=== PATIENT | male | born 1980 | race Caucasian/White ===

== ENCOUNTER 2017-05-10 12:02 | Inpatient (IN) | payer OTHER ==
[2017-05-10 12:39] VITALS: BMI 23.7
--- NOTE | 2017-05-10 13:53 | HP ---
COWS - Scale Resting Pulse: 1= [place] 81-100 Sweatin= Chills/Flushing Restless Observation: 3= Extraneous Movement Pupil Size: 1= Pupils >than Normal Bone or Joint Aches: 2= Severe Diffuse Aches Runny Nose/ Eye Tearin= Runny Nose/Eyes GI Upset > 30mins: 1= Stomach Cramp Tremor Observation: 2= Slight Tremor Visible Yawning Observation: 2= >3x During Session Anxiety or Irritability: 2=Irritable/Anxious Goose Flesh Skin: 0=Smooth Skin COWS Score: 17 Admission [facility] Chief Complaint: withdrawal sx Allergies/Adverse Reactions: Allergies Allergy/AdvReac Type Severity Reaction Status Date / Time No Known Allergies Allergy Verified 05/10/17 14:03 History of Present Illness: 37 years old male with long history of heroin nicotine dependence has depression is admitted to detox Exam Limitations: No Limitations - Ebola screening Have you traveled outside of the country in the last 21 days: No Have you had contact with anyone from an Ebola affected area: No Have you been sick,other than usual withdrawal symptoms: No Do you have a fever: No - Review of Systems Constitutional: Loss of Appetite, Changes in sleep, Unintentional Wgt. Loss, Unexplained wgt Loss EENT: reports: No Symptoms Reported Respiratory: reports: No Symptoms reported Cardiac: reports: No Symptoms Reported GI: reports: Nausea, Poor Appetite, Poor Fluid Intake, Abdominal cramping : reports: No Symptoms Reported Musculoskeletal: reports: Back Pain, Joint Pain, Muscle Pain, Neck Pain Integumentary: reports: No Symptoms Reported Neuro: reports: Tremors Endocrine: reports: No Symptoms Reported Hematology: reports: No Symptoms Reported Psychiatric: reports: Judgement Intact, Orientated x3, Anxious, Depressed Other Systems: Reviewed and Negative Patient History - Patient Medical History Hx Anemia: No Hx Asthma: No Hx Chronic Obstructive Pulmonary Disease (COPD): No Hx Cancer: No Hx Cardiac Disorders: No Hx Congestive Heart Failure: No Hx Hypertension: No Hx Hypercholesterolemia: No Hx Pacemaker: No HX Cerebrovascular Accident: No Hx Seizures: No Hx Dementia: No Hx Diabetes: No Hx Gastrointestinal Disorders: No Hx Liver Disease: No Hx Genitourinary Disorders: No Hx Sexually Transmitted Disorders: No Hx Renal Disease (ESRD): No Hx Thyroid Disease: No Hx Human Immunodeficiency Virus (HIV): No Hx Hepatitis C: No Hx Depression: Yes Hx Suicide Attempt: No Hx Bipolar Disorder: No Hx Schizophrenia: No - Patient Surgical History Past Surgical History: No - PPD History Previous Implant?: Yes Documented Results: Negative w/o proof Implanted On Prior [facility] Admission?: No PPD to be Administered?: Yes - Smoking Cessation Smoking history: Current every day smoker Have you smoked in the past 12 months: Yes Aproximately how many cigarettes per day: 6 Cigars Per Day: 0 Hx Chewing Tobacco Use: No Initiated information on smoking cessation: Yes 'Breaking Loose' booklet given: 05/10/17 - Substance & Tx. History Hx Alcohol Use: No Hx Substance Use: Yes Substance Use Type: Heroin, Marijuana, Tranquilizers Hx Substance Use Treatment: No (first detox) - Substances Abused Heroin Route: Inhalation Frequency: Daily Amount used: 5 bags Age of first use: 35 Date of Last Use: 05/09/17 Family Disease History - Family Disease History Family Disease History: [place]: Father (), Other: Father Admission Physical Exam S - Vital Signs Vital Signs: Vital Signs - 24 hr 05/10/17 12:36 Temperature 98.9 F Pulse Rate 100 H Respiratory 18 Rate Blood Pressure 118/78 - Physical General Appearance: Yes: Appropriately Dressed, Mild Distress, Thin, Tremorous, Irritable, Sweating, Anxious HEENTM: Yes: Hearing grossly Normal, Normal ENT Inspection, Normocephalic, Normal Voice Respiratory: Yes: Chest Non-Tender, No Respiratory Distress, No Accessory Muscle Use, Hyperresonant Neck: Yes: Supple, Trachea in good position Breast: Yes: Breasts Symetrical Cardiology: Yes: Regular Rhythm, S1, S2, Tachycardia Abdominal: Yes: Normal Bowel Sounds, Non Tender, Soft Genitourinary: Yes: Within Normal Limits Back: Yes: Normal Inspection Musculoskeletal: Yes: full range of Motion, Gait Steady, Back pain, Muscle Pain Extremities: Yes: Normal Inspection, Normal Range of Motion, Non-Tender, Tremors Neurological: Yes: Fully Oriented, Alert, Motor Strength 5/5, Normal Response, Depressed Affect Integumentary: Yes: Warm Lymphatic: Yes: Within Normal Limits - Diagnostic (1) Opioid dependence with withdrawal Current Visit: Yes Status: Acute (2) Nicotine dependence Current Visit: Yes Status: Acute Qualifiers: Nicotine product type: cigarettes Substance use status: in withdrawal Qualified Code(s): F17.213 - Nicotine dependence, cigarettes, with withdrawal (3) Weight loss Current Visit: Yes Status: Acute (4) Depression (emotion) Current Visit: Yes Status: Suspected Qualifiers: Depression Type: dysthymia Qualified Code(s): F34.1 - Dysthymic disorder Cleared for Admission [facility] - Detox or Rehab [facility] Level of Care: Medically Managed Detox Regimen/Protocol: Methadone [facility] Breath Alcohol Content Breath Alcohol Content: 0 Urine Drug Screen - Results Drug Screen Negative: No Urine Drug Screen Results: THC-Marijuana, OPI-Opiates, BZO-Benzodiazepines
[2017-05-10] MEDS ORDERED: P-EPHED 60MG/TRIPROLIDI 2.5MG TABLET PO PRN (14:10)
[2017-05-10] MEDS ORDERED: MENTHOL/PHENOL 1 EACH UD MM PRN (14:10)
[2017-05-10] MEDS ORDERED: MAGNESIUM HYDROX 2400MG/30ML ORAL SUSPENSION 30 ML CUP PO PRN (14:10)
[2017-05-10] MEDS ORDERED: ACETAMINOPHEN 325 MG TABLET (FP) PO PRN (14:10)
[2017-05-10] MEDS ORDERED: LOPERAMIDE HCL 2 MG CAPSULE PO PRN (14:10)
[2017-05-10] MEDS ORDERED: guaiFENesin/D-METHORPHAN HB 10 ML UNIT-DOSE CUPS PO PRN (14:10)
[2017-05-10] MEDS ORDERED: IBUPROFEN 400 MG TABLET (FP) PO PRN (14:10)
[2017-05-10] MEDS ORDERED: MAG HYDROX/AL HYDROX/SIMETH 30 ML UNIT-DOSE CUP PO PRN (14:10)
[2017-05-10] MEDS ORDERED: MAGNESIUM CITRATE 300 ML BOTTLE PO PRN (14:10)
[2017-05-10] MEDS ORDERED: METHADONE HCL 10 MG TABLET (FOR DETOX USE ONLY) PO ONE ×2 (17:15→23:00)
[2017-05-10] MEDS: THIAMINE HCL 100 MG TABLET (FP) PO SCH (22:18)
[2017-05-10] MEDS: METHOCARBAMOL 500 MG TABLET PO PRN (22:18)
[2017-05-10] MEDS: diazePAM 5 MG TABLET PO PRN (22:19)
[2017-05-10] MEDS: SODIUM CHLORIDE NASAL SPRAY 44 ML BOTTLE NS SCH (22:19)
[2017-05-11 00:23] LABS: URINE APPEARANCE CLEAR; URINE BILIRUBIN NEGATIVE (NEGATIVE); URINE BLOOD NEGATIVE (NEGATIVE); URINE COLOR YELLOW; URINE GLUCOSE (UA) NEGATIVE (NEGATIVE); URINE KETONE NEGATIVE (NEGATIVE); URINE LEUK ESTERASE NEGATIVE (NEGATIVE); URINE NITRITE NEGATIVE (NEGATIVE); URINE PROTEIN NEGATIVE (NEGATIVE)
[2017-05-11] MEDS: diazePAM 5 MG TABLET PO PRN ×5 (03:01→22:40)
[2017-05-11] MEDS: SODIUM CHLORIDE NASAL SPRAY 44 ML BOTTLE NS SCH ×3 (05:39→22:13)
--- NOTE | 2017-05-11 08:03 | EKG ---
Test Reason : Blood Pressure : / mmHG Vent. Rate : 071 BPM Atrial Rate : 071 BPM P-R Int : 134 ms QRS Dur : 098 ms QT Int : 404 ms P-R-T Axes : 056 -42 008 degrees QTc Int : 439 ms NORMAL SINUS RHYTHM LEFT AXIS DEVIATION ABNORMAL ECG NO PREVIOUS ECGS AVAILABLE Confirmed by THAO DORAN MD ([id number]) on 05/11/2017 8:03:11 AM Referred By: Confirmed By:THAO DORAN MD
[2017-05-11] MEDS ORDERED: METHADONE HCL 10 MG TABLET (FOR DETOX USE ONLY) PO ONE (10:00)
[2017-05-11 10:06] LABS: HEMOGLOBIN 14.8 GM/dL (11.7-16.9); MCH 29.9 pg (25.7-33.7); MCHC 33.7 g/dl (32.0-35.9); MEAN CELL VOLUME 88.8 fl (80-96); PLATELET COUNT 220 K/MM3 (134-434); RBC 4.95 M/mm3 (4.00-5.60); RDW 13.4 % (11.9-15.9); WHITE BLOOD COUNT 9.1 K/mm3 (4.0-10.0)
[2017-05-11 10:14] LABS: CHLORIDE 105 mmol/L (98-107); POTASSIUM 4.4 mmol/L (3.5-5.1); SODIUM 139 mmol/L (136-145)
[2017-05-11] MEDS: PRENATAL VITAMINS W/ FOLIC ACID TABLET (FP) PO SCH (10:18)
[2017-05-11] MEDS: NICOTINE 14 MG/24 HOURS TOPICAL PATCH TD SCH (10:19)
[2017-05-11 10:31] LABS: ALBUMIN 4.1 g/dl (3.4-5.0); ALK PHOS 87 U/L (45-117); ANION GAP 8 (8-16); BLOOD UREA NITROGEN 14 mg/dL (7-18); CALCIUM 9.6 mg/dL (8.5-10.1); CO2 26 mmol/L (21-32); CREATININE 0.8 mg/dL (0.7-1.3); GLUCOSE,RANDOM 98 mg/dL (74-106); SGOT/AST 23 U/L (15-37); SGPT/ALT 30 U/L (12-78); TOT PROT 8.3 g/dl (6.4-8.2)
--- NOTE | 2017-05-11 11:43 | PN ---
BHS COWS - Scale Resting Pulse: 0= [place] 80 or Below Sweatin= Chills/Flushing Restless Observation: 3= Extraneous Movement Pupil Size: 0= Normal to Room Light Bone or Joint Aches: 4=Acute Joint/Muscle Pain Runny Nose/ Eye Tearin= Nasal Congestion GI Upset > 30mins: 1= Stomach Cramp Tremor Observation of Outstretched Hands: 2= Slight Tremor Visible Yawning Observation: 2= >3x During Session Anxiety or Irritability: 2=Irritable/Anxious Goose Flesh Skin: 0=Smooth Skin COWS Score: 16 BHS Progress Note (SOAP) Subjective: ANXIETY,HOT/COLD SWEATS, INTERMITTENT SLEEP. Objective: 05/11/17 11:42 Vital Signs Temperature 98.1 F 05/11/17 09:07 Pulse Rate 79 05/11/17 09:07 Respiratory Rate 18 05/11/17 09:07 Blood Pressure 118/78 05/11/17 09:07 O2 Sat by Pulse Oximetry (%) Laboratory Last Values WBC 9.1 K/mm3 (4.0-10.0) 05/11/17 05:50 RBC 4.95 M/mm3 (4.00-5.60) 05/11/17 05:50 Hgb 14.8 GM/dL (11.7-16.9) 05/11/17 05:50 Hct 44.0 % (35.4-49) 05/11/17 05:50 MCV 88.8 fl (80-96) 05/11/17 05:50 MCH 29.9 pg (25.7-33.7) 05/11/17 05:50 MCHC 33.7 g/dl (32.0-35.9) 05/11/17 05:50 RDW 13.4 % (11.9-15.9) 05/11/17 05:50 Plt Count 220 K/MM3 (134-434) 05/11/17 05:50 MPV 10.0 fl (7.5-11.1) 05/11/17 05:50 Sodium 139 mmol/L (136-145) 05/11/17 05:50 Potassium 4.4 mmol/L (3.5-5.1) 05/11/17 05:50 Chloride 105 mmol/L (98-107) 05/11/17 05:50 Carbon Dioxide 26 mmol/L (21-32) 05/11/17 05:50 Anion Gap 8 (8-16) 05/11/17 05:50 BUN 14 mg/dL (7-18) 05/11/17 05:50 Creatinine 0.8 mg/dL (0.7-1.3) 05/11/17 05:50 Creat Clearance w eGFR > 60 (>60) 05/11/17 05:50 Random Glucose 98 mg/dL (74-106) 05/11/17 05:50 Calcium 9.6 mg/dL (8.5-10.1) 05/11/17 05:50 Total Bilirubin 1.0 mg/dL (0.2-1.0) 05/11/17 05:50 AST 23 U/L (15-37) 05/11/17 05:50 ALT 30 U/L (12-78) 05/11/17 05:50 Alkaline Phosphatase 87 U/L (45-117) 05/11/17 05:50 Total Protein 8.3 g/dl (6.4-8.2) H 05/11/17 05:50 Albumin 4.1 g/dl (3.4-5.0) 05/11/17 05:50 Urine Color Yellow 05/10/17 20:00 Urine Appearance Clear 05/10/17 20:00 Urine pH 7.0 (5.0-8.0) 05/10/17 20:00 Ur Specific [place] 1.025 (1.001-1.035) 05/10/17 20:00 Urine Protein Negative (NEGATIVE) 05/10/17 20:00 Urine Glucose (UA) Negative (NEGATIVE) 05/10/17 20:00 Urine Ketones Negative (NEGATIVE) 05/10/17 20:00 Urine Blood Negative (NEGATIVE) 05/10/17 20:00 Urine Nitrite Negative (NEGATIVE) 05/10/17 20:00 Urine Bilirubin Negative (NEGATIVE) 05/10/17 20:00 Urine Urobilinogen 2.0 mg/dL (0.2-1.0) 05/10/17 20:00 Ur Leukocyte Esterase Negative (NEGATIVE) 05/10/17 20:00 Assessment: 05/11/17 11:42 WITHDRAWAL SX Plan: CONTINUE DETOX
--- NOTE | 2017-05-11 13:58 | CONSULT ---
[facility] Psychiatric Consult - Data Date of interview: 05/11/17 Admission source: [facility] Identifying data: First admission to [facility] for this 37 y/o male seeking detox treatment on for heroin and cannabis dependence.Patient is single, a father of one,homeless,unemployed and supported on food stamps. Substance Abuse History: Discussed with patient.Confirmed addictions reported at [facility] on admission : Smoking history: Current every day smoker. Have you smoked in the past 12 months: Yes. Aproximately how many cigarettes per day: 6. Cigars Per Day: 0. Hx Chewing Tobacco Use: No. Initiated information on smoking cessation: Yes. 'Breaking Loose' booklet given: 05/10/17. - Substance & Tx. History. Hx Alcohol Use: No. Hx Substance Use: Yes. Substance Use Type : Heroin, Marijuana, Tranquilizers. Hx Substance Use Treatment: No (first detox ). - Substances Abused. Heroin. Route: Inhalation. Frequency: Daily. Amount used: 5 bags. Age of first use: 35. Date of Last Use: 05/09/17 Medical History: Patient endorses good general health. Psychiatric History: Patient denies. Physical/Sexual Abuse/Trauma History: Patient denies. Additional Comment: THC-Marijuana, OPI-Opiates, BZO-Benzodiazepines.Noted. Mental Status Exam - Mental Status Exam Alert and Oriented to: Time, Place, Person Cognitive Function: Good Patient Appearance: Well Groomed Mood: Hopeful, Euthymic Affect: Appropriate, Normal Range Patient Behavior: Appropriate, Cooperative Speech Pattern: Clear, Appropriate Voice Loudness: Normal Thought Process: Intact, Goal Oriented Thought Disorder: Not Present Hallucinations: Denies Suicidal Ideation: Denies Homicidal Ideation: Denies Insight/Judgement: Poor Sleep: Poorly, Difficulty falling asleep Appetite: Good Muscle strength/Tone: Normal Gait/Station: Normal Psychiatric Findings - Problem List ([place] 1, 2,3) (1) Opioid dependence with withdrawal Current Visit: Yes Status: Acute (2) Cannabis abuse Current Visit: Yes Status: Acute (3) Nicotine dependence Current Visit: Yes Status: Acute Qualifiers: Nicotine product type: cigarettes Substance use status: in withdrawal Qualified Code(s): F17.213 - Nicotine dependence, cigarettes, with withdrawal (4) Insomnia Current Visit: Yes Status: Acute - Initial Treatment Plan Initial Treatment Plan: Psychoeducation and support are provided in this session.Sleep hygiene discussed with the patient.Detoxification in progress.Benadryl 50 mg po hs psrn (insomnia) at patient's request.Side effects/ benefits discussed with patient.Consent (verbal) given.Daily monitoring of hospital course.
[2017-05-11] MEDS: METHOCARBAMOL 500 MG TABLET PO PRN (14:32)
[2017-05-11] MEDS: NICOTINE POLACRILEX 2 MG GUM BUC PRN (20:22)
[2017-05-11] MEDS ORDERED: diphenhydrAMINE HCL 50 MG CAPSULE PO PRN (22:00)
[2017-05-11] MEDS: THIAMINE HCL 100 MG TABLET (FP) PO SCH (22:13)
[2017-05-12] MEDS: diazePAM 5 MG TABLET PO PRN ×5 (05:40→23:24)
[2017-05-12] MEDS: SODIUM CHLORIDE NASAL SPRAY 44 ML BOTTLE NS SCH ×3 (05:53→22:20)
[2017-05-12] MEDS ORDERED: METHADONE HCL 5 MG TABLET (FOR DETOX USE ONLY) PO ONE (10:00)
[2017-05-12] MEDS: PRENATAL VITAMINS W/ FOLIC ACID TABLET (FP) PO SCH (10:17)
[2017-05-12] MEDS: NICOTINE POLACRILEX 2 MG GUM BUC PRN ×2 (10:17→18:58)
[2017-05-12] MEDS: NICOTINE 14 MG/24 HOURS TOPICAL PATCH TD SCH (10:18)
--- NOTE | 2017-05-12 12:51 | PN ---
BHS COWS - Scale Resting Pulse: 1= [place] 81-100 Sweatin= Chills/Flushing Restless Observation: 3= Extraneous Movement Pupil Size: 2= Moderately Dilated Bone or Joint Aches: 4=Acute Joint/Muscle Pain Runny Nose/ Eye Tearin= Nasal Congestion GI Upset > 30mins: 1= Stomach Cramp Tremor Observation of Outstretched Hands: 1= Tremor [place], Not Seen Yawning Observation: 2= >3x During Session Anxiety or Irritability: 2=Irritable/Anxious Goose Flesh Skin: 0=Smooth Skin COWS Score: 18 BHS Progress Note (SOAP) Subjective: ANXIETY, IRRITABILITY, SWEATS, INTERMITTENT SLEEP. Objective: 05/12/17 12:57 Vital Signs Temperature 96.9 F L 05/12/17 09:44 Pulse Rate 83 05/12/17 09:44 Respiratory Rate 18 05/12/17 09:44 Blood Pressure 112/71 05/12/17 09:44 O2 Sat by Pulse Oximetry (%) Laboratory Last Values WBC 9.1 K/mm3 (4.0-10.0) 05/11/17 05:50 RBC 4.95 M/mm3 (4.00-5.60) 05/11/17 05:50 Hgb 14.8 GM/dL (11.7-16.9) 05/11/17 05:50 Hct 44.0 % (35.4-49) 05/11/17 05:50 MCV 88.8 fl (80-96) 05/11/17 05:50 MCH 29.9 pg (25.7-33.7) 05/11/17 05:50 MCHC 33.7 g/dl (32.0-35.9) 05/11/17 05:50 RDW 13.4 % (11.9-15.9) 05/11/17 05:50 Plt Count 220 K/MM3 (134-434) 05/11/17 05:50 MPV 10.0 fl (7.5-11.1) 05/11/17 05:50 Sodium 139 mmol/L (136-145) 05/11/17 05:50 Potassium 4.4 mmol/L (3.5-5.1) 05/11/17 05:50 Chloride 105 mmol/L (98-107) 05/11/17 05:50 Carbon Dioxide 26 mmol/L (21-32) 05/11/17 05:50 Anion Gap 8 (8-16) 05/11/17 05:50 BUN 14 mg/dL (7-18) 05/11/17 05:50 Creatinine 0.8 mg/dL (0.7-1.3) 05/11/17 05:50 Creat Clearance w eGFR > 60 (>60) 05/11/17 05:50 Random Glucose 98 mg/dL (74-106) 05/11/17 05:50 Calcium 9.6 mg/dL (8.5-10.1) 05/11/17 05:50 Total Bilirubin 1.0 mg/dL (0.2-1.0) 05/11/17 05:50 AST 23 U/L (15-37) 05/11/17 05:50 ALT 30 U/L (12-78) 05/11/17 05:50 Alkaline Phosphatase 87 U/L (45-117) 05/11/17 05:50 Total Protein 8.3 g/dl (6.4-8.2) H 05/11/17 05:50 Albumin 4.1 g/dl (3.4-5.0) 05/11/17 05:50 Urine Color Yellow 05/10/17 20:00 Urine Appearance Clear 05/10/17 20:00 Urine pH 7.0 (5.0-8.0) 05/10/17 20:00 Ur Specific [place] 1.025 (1.001-1.035) 05/10/17 20:00 Urine Protein Negative (NEGATIVE) 05/10/17 20:00 Urine Glucose (UA) Negative (NEGATIVE) 05/10/17 20:00 Urine Ketones Negative (NEGATIVE) 05/10/17 20:00 Urine Blood Negative (NEGATIVE) 05/10/17 20:00 Urine Nitrite Negative (NEGATIVE) 05/10/17 20:00 Urine Bilirubin Negative (NEGATIVE) 05/10/17 20:00 Urine Urobilinogen 2.0 mg/dL (0.2-1.0) 05/10/17 20:00 Ur Leukocyte Esterase Negative (NEGATIVE) 05/10/17 20:00 RPR Titer Nonreactive (NONREACTIVE) 05/11/17 05:50 Assessment: 05/12/17 12:58 WITHDRAWAL SX Plan: CONTINUE DETOX PSYCH F/U FOR INSOMNIA WORKUP TODAY.
[2017-05-12] MEDS: METHOCARBAMOL 500 MG TABLET PO PRN (13:07)
--- NOTE | 2017-05-12 15:59 | PN ---
Psychiatric Progress Note Vital Signs: Vital Signs Period Temp Pulse Resp BP Sys/Valerio Pulse Ox Last 24 Hr 96.4 F-97.8 F 59-83 18-19 105-122/57-81 Date of Session: 05/12/17 Chief Complaint:: "I woke up after two hours of taking the benadryl." HPI: Pt. admitted to for heroin and cannabis dependence. ROS: Unremarkable Current Medications: Active Medications Generic Name Dose Route Start Last Admin Trade Name Freq PRN Reason Stop Dose Admin Acetaminophen 650 mg 05/10/17 14:10 Tylenol - PO Q4H PRN FEVER Al Hydroxide/Mg Hydroxide 30 ml 05/10/17 14:10 Mylanta Oral Suspension - PO Q6H PRN DYSPEPSIA Diazepam 10 mg 05/10/17 14:10 05/12/17 14:41 Valium - PO 05/13/17 14:09 10 mg Q4H PRN Administration WITHDRAWAL(CONT SUBST) Diphenhydramine HCl 50 mg 05/11/17 22:00 05/11/17 22:13 Benadryl - PO 50 mg HS PRN Administration INSOMNIA Eucalyptus/Menthol/Phenol/Sorbitol 1 each 05/10/17 14:10 Cepastat Lozenge - MM Q4H PRN SORE THROAT Guaifenesin 10 ml 05/10/17 14:10 Robitussin Dm - PO Q6H PRN COUGH Ibuprofen 400 mg 05/10/17 14:10 Motrin - PO Q6H PRN PAIN LEVEL 4-6 Loperamide HCl 4 mg 05/10/17 14:10 Imodium - PO Q6H PRN DIARRHEA Magnesium Citrate 300 ml 05/10/17 14:10 Citroma - PO Q48H PRN CONSTIPATION Magnesium Hydroxide 30 ml 05/10/17 14:10 Milk Of Magnesia - PO DAILY PRN CONSTIPATION Methadone HCl 5 mg 05/15/17 06:00 Dolophine - PO 05/15/17 06:01 ONCE@0600 ONE Methadone HCl 15 mg 05/13/17 10:00 Dolophine - PO 05/13/17 10:01 ONCE ONE Methadone HCl 10 mg 05/14/17 10:00 Dolophine - PO 05/14/17 10:01 ONCE ONE Methocarbamol 500 mg 05/10/17 17:55 05/12/17 13:07 Robaxin - PO 500 mg TID PRN Administration BACK PAIN Nicotine 14 mg 05/11/17 10:00 05/12/17 10:18 Nicoderm Patch - TD Not Given DAILY DEON Nicotine Polacrilex 2 mg 05/10/17 14:10 05/12/17 10:17 Nicorette Gum - BUC 2 mg Q2H PRN Administration NICOTINE REPLACEMENT RX Multivit/Folic Acid/Iron 1 tab 05/11/17 10:00 05/12/17 10:17 Vitamins ([facility]) - PO 1 tab DAILY DEON Administration Pseudoephedrine/Triprolidine 1 combo 05/10/17 14:10 Actifed - PO TID PRN NASAL CONGESTION Sodium Chloride 2 spray 05/10/17 22:00 05/12/17 13:07 [place] Nasal [place] - NS 2 sprays TID DEON Administration Thiamine HCl 100 mg 05/10/17 22:00 05/11/17 22:13 Vitamin B1 - PO 100 mg HS DEON Administration Medication(s) Change(s): Yes. Will increase benadryl to 100mg for insomnia. Current Side Effect: No Lab tests ordered: No Lab tests reviewed: Yes Provider note:: [facility] [employer]ner approached patient concerning psychiatric reconsultation. Pt. c/o poor sleep. States benadryl 50mg was ineffective. Pt reports sleeping approximately 2 hours, waking up, and having difficulty returning to sleep. Psychopharmacotherapy and sleep hygiene provided. Pt. agreeable to accepting an additional 50mg of benadryl as opposed to accepting another sleep aid. Benefits and side effects discussed. Verbal consent given. Benadryl 100mg qhs prn ordered for insomnia. Total face to face time:: 25 Mental Status Exam - Mental Status Exam Alert and Oriented to: Time, Place, Person Cognitive Function: Good Patient Appearance: Well Groomed Mood: Hopeful Affect: Appropriate, Mood Congruent Patient Behavior: Appropriate, Cooperative Speech Pattern: Clear, Appropriate Voice Loudness: Normal Thought Process: Intact Thought Disorder: Not Present Hallucinations: Denies Suicidal Ideation: Denies Homicidal Ideation: Denies Insight/Judgement: Poor Sleep: Poorly Appetite: Fair Muscle strength/Tone: Normal Gait/Station: Normal Psychiatric Treatment Plan - Problem List (1) Cannabis abuse Current Visit: Yes (2) Insomnia Current Visit: Yes (3) Nicotine dependence Current Visit: Yes Qualifiers: Nicotine product type: cigarettes Substance use status: in withdrawal Qualified Code(s): F17.213 - Nicotine dependence, cigarettes, with withdrawal (4) Opioid dependence with withdrawal Current Visit: Yes
[2017-05-12] MEDS ORDERED: diphenhydrAMINE HCL 50 MG CAPSULE PO PRN (22:00)
[2017-05-12] MEDS: THIAMINE HCL 100 MG TABLET (FP) PO SCH (22:20)
[2017-05-13] MEDS: SODIUM CHLORIDE NASAL SPRAY 44 ML BOTTLE NS SCH (06:12)
[2017-05-13] MEDS: diazePAM 5 MG TABLET PO PRN (06:37)
[2017-05-13 09:19] VITALS: BP 118/79; PULSE 88; TEMP 97
[2017-05-13] MEDS ORDERED: METHADONE HCL 5 MG TABLET (FOR DETOX USE ONLY) PO ONE (10:00)
--- NOTE | 2017-05-13 17:20 | DS ---
[facility] Detox Discharge Summary Admission Date: 05/10/17 Discharge Date: 05/13/17 - History Present History: Cannabis Dependence, Opioid Dependence Additional Comments: PT SIGNED OUT AMA FOR PERSONAL REASONS STATING I"M FINE, I HAVE TO GO NOW'. PT WAS ENCOURAGED AND EXPLAINED THE NEED TO STAY IN TREATMENT BUT PT DECLINED. Pertinent Past History: UNREMARKABLE - Physical Exam Results Vital Signs: Vital Signs Temperature 97.0 F L 05/13/17 09:18 Pulse Rate 88 05/13/17 09:18 Respiratory Rate 18 05/13/17 09:18 Blood Pressure 118/79 05/13/17 09:18 O2 Sat by Pulse Oximetry (%) Pertinent Admission Physical Exam Findings: WITHDRAWAL SX Laboratory Last Values WBC 9.1 K/mm3 (4.0-10.0) 05/11/17 05:50 RBC 4.95 M/mm3 (4.00-5.60) 05/11/17 05:50 Hgb 14.8 GM/dL (11.7-16.9) 05/11/17 05:50 Hct 44.0 % (35.4-49) 05/11/17 05:50 MCV 88.8 fl (80-96) 05/11/17 05:50 MCH 29.9 pg (25.7-33.7) 05/11/17 05:50 MCHC 33.7 g/dl (32.0-35.9) 05/11/17 05:50 RDW 13.4 % (11.9-15.9) 05/11/17 05:50 Plt Count 220 K/MM3 (134-434) 05/11/17 05:50 MPV 10.0 fl (7.5-11.1) 05/11/17 05:50 Sodium 139 mmol/L (136-145) 05/11/17 05:50 Potassium 4.4 mmol/L (3.5-5.1) 05/11/17 05:50 Chloride 105 mmol/L (98-107) 05/11/17 05:50 Carbon Dioxide 26 mmol/L (21-32) 05/11/17 05:50 Anion Gap 8 (8-16) 05/11/17 05:50 BUN 14 mg/dL (7-18) 05/11/17 05:50 Creatinine 0.8 mg/dL (0.7-1.3) 05/11/17 05:50 Creat Clearance w eGFR > 60 (>60) 05/11/17 05:50 Random Glucose 98 mg/dL (74-106) 05/11/17 05:50 Calcium 9.6 mg/dL (8.5-10.1) 05/11/17 05:50 Total Bilirubin 1.0 mg/dL (0.2-1.0) 05/11/17 05:50 AST 23 U/L (15-37) 05/11/17 05:50 ALT 30 U/L (12-78) 05/11/17 05:50 Alkaline Phosphatase 87 U/L (45-117) 05/11/17 05:50 Total Protein 8.3 g/dl (6.4-8.2) H 05/11/17 05:50 Albumin 4.1 g/dl (3.4-5.0) 05/11/17 05:50 Urine Color Yellow 05/10/17 20:00 Urine Appearance Clear 05/10/17 20:00 Urine pH 7.0 (5.0-8.0) 05/10/17 20:00 Ur Specific [place] 1.025 (1.001-1.035) 05/10/17 20:00 Urine Protein Negative (NEGATIVE) 05/10/17 20:00 Urine Glucose (UA) Negative (NEGATIVE) 05/10/17 20:00 Urine Ketones Negative (NEGATIVE) 05/10/17 20:00 Urine Blood Negative (NEGATIVE) 05/10/17 20:00 Urine Nitrite Negative (NEGATIVE) 05/10/17 20:00 Urine Bilirubin Negative (NEGATIVE) 05/10/17 20:00 Urine Urobilinogen 2.0 mg/dL (0.2-1.0) 05/10/17 20:00 Ur Leukocyte Esterase Negative (NEGATIVE) 05/10/17 20:00 RPR Titer Nonreactive (NONREACTIVE) 05/11/17 05:50 - Treatment Hospital Course: Discharged Condition Good - Medication Discharge Medications: Ambulatory Orders NK [No Known Home Medication] 05/10/17 - Diagnosis (1) Nicotine dependence Status: Acute Qualifiers: Nicotine product type: cigarettes Substance use status: in withdrawal Qualified Code(s): F17.213 - Nicotine dependence, cigarettes, with withdrawal (2) Opioid dependence with withdrawal Status: Acute (3) Weight loss Status: Acute (4) Cannabis abuse Status: Acute - AMA Did Patient Leave Against Medical Advice: Yes (AMA)
[2017-05-14] MEDS ORDERED: METHADONE HCL 10 MG TABLET (FOR DETOX USE ONLY) PO ONE (10:00)
[2017-05-15] MEDS ORDERED: METHADONE HCL 5 MG TABLET (FOR DETOX USE ONLY) PO ONE (06:00)
== END 2017-05-13 09:48 | disposition left against medical advice (07) | DRG 770 ==
LOC: YASAS 12:02 → Y3N 15:59
PROVIDERS: ADMIT Internal Medicine; ATTEND Internal Medicine
PROC: HZ2ZZZZ Detoxification Services for Substance Abuse Treatment (ICD-10-PCS; principal; 2017-05-10)
DX: F11.23 Opioid dependence with withdrawal (principal); F12.10 Cannabis abuse, uncomplicated; F17.213 Nicotine dependence, cigarettes, with withdrawal; F34.1 Dysthymic disorder; G47.00 Insomnia, unspecified; R63.4 Abnormal weight loss; Z68.23 Body mass index [BMI] 23.0-23.9, adult
CPT/HCPCS: 36415; 80053; 81003; 85027; 86593; 93005; 93010

== ENCOUNTER 2017-08-15 18:26 | Inpatient (IN) | payer OTHER ==
[2017-08-15 19:51] VITALS: BMI 24.4
[2017-08-15] MEDS ORDERED: METHADONE HCL 10 MG TABLET (FOR DETOX USE ONLY) PO ONE ×2 (23:00→23:26)
--- NOTE | 2017-08-15 23:14 | HP ---
COWS - Scale Resting Pulse: 0= DC 80 or Below Sweatin=Flushed/Facial Moisture Restless Observation: 0= Sits Still Pupil Size: 1= Pupils >than Normal Bone or Joint Aches: 2= Severe Diffuse Aches Runny Nose/ Eye Tearin= Runny Nose/Eyes GI Upset > 30mins: 1= Stomach Cramp Tremor Observation: 2= Slight Tremor Visible Yawning Observation: 1= 1-2x During Session Anxiety or Irritability: 2=Irritable/Anxious Goose Flesh Skin: 0=Smooth Skin COWS Score: 13 Admission [facility] Chief Complaint: Heroin withdrawal symptoms Allergies/Adverse Reactions: Allergies Allergy/AdvReac Type Severity Reaction Status Date / Time No Known Allergies Allergy Verified 08/15/17 21:39 History of Present Illness: 37 years old male with 2 years history of heroin dependence is seeking admission to detox. Patient has been in detox once at [facility] and reports insignificant period of sobriety. Patient has past medical of history and denies suicide attempt and suicidal ideation at this time. Exam Limitations: No Limitations - Ebola screening Have you traveled outside of the country in the last 21 days: No Have you had contact with anyone from an Ebola affected area: No Have you been sick,other than usual withdrawal symptoms: No Do you have a fever: No - Review of Systems Constitutional: Malaise, Night Sweats, Changes in sleep EENT: reports: No Symptoms Reported Respiratory: reports: No Symptoms reported Cardiac: reports: No Symptoms Reported GI: reports: Poor Appetite, Poor Fluid Intake : reports: No Symptoms Reported Musculoskeletal: reports: Back Pain, Joint Pain, Muscle Pain, Muscle Weakness Integumentary: reports: Dryness, Flushing Neuro: reports: Tingling, Tremors Endocrine: reports: No Symptoms Reported Hematology: reports: No Symptoms Reported Psychiatric: reports: Mood/Affect Appropiate, Orientated x3 Other Systems: Reviewed and Negative Patient History - Patient Medical History Hx Anemia: No Hx Asthma: No Hx Chronic Obstructive Pulmonary Disease (COPD): No Hx Cancer: No Hx Cardiac Disorders: No Hx Congestive Heart Failure: No Hx Hypertension: No Hx Hypercholesterolemia: No Hx Pacemaker: No HX Cerebrovascular Accident: No Hx Seizures: No Hx Dementia: No Hx Diabetes: No Hx Gastrointestinal Disorders: No Hx Liver Disease: No Hx Genitourinary Disorders: No Hx Sexually Transmitted Disorders: No Hx Renal Disease (ESRD): No Hx Thyroid Disease: No Hx Human Immunodeficiency Virus (HIV): No (Negative 2017) Hx Hepatitis C: No Hx Depression: No Hx Suicide Attempt: No (Denies suicide attempt and suicidal ideation at this time) Hx Bipolar Disorder: No Hx Schizophrenia: No - Patient Surgical History Past Surgical History: No Hx Neurologic Surgery: No Hx Cataract Extraction: No Hx Cardiac Surgery: No Hx Lung Surgery: No Hx Abdominal Surgery: No Hx Appendectomy: No Hx Cholecystectomy: No Hx Genitourinary Surgery: No Hx Section: No Hx Orthopedic Surgery: No Anesthesia Reaction: No - PPD History Previous Implant?: Yes Documented Results: Negative w/proof Date: 05/12/17 PPD to be Administered?: No - Reproductive History Patient is a Female of Child Bearing Age (11 -55 yrs old): No (Male) - Smoking Cessation Smoking history: Current every day smoker Have you smoked in the past 12 months: Yes Aproximately how many cigarettes per day: 6 Cigars Per Day: 0 Hx Chewing Tobacco Use: No Initiated information on smoking cessation: Yes 'Breaking Loose' booklet given: 08/15/17 - Substance & Tx. History Hx Alcohol Use: No Hx Substance Use: Yes Substance Use Type: Heroin, Marijuana Hx Substance Use Treatment: Yes ([facility]) - Substances Abused Heroin Route: Inhalation Frequency: Daily Amount used: 8 bags Age of first use: 35 Date of Last Use: 08/14/17 Marijuana/Hashish Route: Smoking Frequency: Daily Amount used: 3 joints Age of first use: 26 Date of Last Use: 08/14/17 Family Disease History - Family Disease History Family Disease History: [place]: Father (), Other: Father Admission Physical Exam [facility] - Vital Signs Vital Signs: Vital Signs - 24 hr 08/15/17 19:49 Temperature 97.9 F Pulse Rate 68 Respiratory 18 Rate Blood Pressure 136/64 - Physical General Appearance: Yes: Moderate Distress, Tremorous, Irritable, Sweating, Anxious HEENTM: Yes: EOMI, Normal ENT Inspection, Normal Voice, BAR Respiratory: Yes: Lungs Clear, Normal Breath Sounds, No Respiratory Distress Neck: Yes: Supple Breast: Yes: Breast Exam Deferred Cardiology: Yes: Regular Rhythm, Regular Rate Abdominal: Yes: Normal Bowel Sounds, Soft Genitourinary: Yes: Within Normal Limits Back: Yes: Normal Inspection Musculoskeletal: Yes: Within Normal Limits Extremities: Yes: Tremors Neurological: Yes: Alert, Normal Mood/Affect Integumentary: Yes: Warm Lymphatic: Yes: Within Normal Limits - Diagnostic (1) Cannabis abuse Current Visit: Yes Status: Chronic (2) Nicotine dependence Current Visit: Yes Status: Chronic Qualifiers: Nicotine product type: cigarettes Substance use status: in withdrawal Qualified Code(s): F17.213 - Nicotine dependence, cigarettes, with withdrawal (3) Opioid dependence with withdrawal Current Visit: Yes Status: Chronic (4) Depression (emotion) Current Visit: Yes Status: Chronic Qualifiers: Depression Type: dysthymia Qualified Code(s): F34.1 - Dysthymic disorder Cleared for Admission [facility] - Detox or Rehab [facility] Level of Care: Medically Managed Detox Regimen/Protocol: Methadone [facility] Breath Alcohol Content Breath Alcohol Content: 0 Urine Drug Screen - Results Drug Screen Negative: No Urine Drug Screen Results: THC-Marijuana, OPI-Opiates
[2017-08-15] MEDS ORDERED: MAGNESIUM HYDROX 2400MG/30ML ORAL SUSPENSION 30 ML CUP PO PRN (23:21)
[2017-08-15] MEDS ORDERED: ACETAMINOPHEN 325 MG TABLET (FP) PO PRN (23:21)
[2017-08-15] MEDS ORDERED: IBUPROFEN 400 MG TABLET (FP) PO PRN (23:21)
[2017-08-15] MEDS ORDERED: MAGNESIUM CITRATE 300 ML BOTTLE PO PRN (23:21)
[2017-08-15] MEDS ORDERED: LOPERAMIDE HCL 2 MG CAPSULE PO PRN (23:21)
[2017-08-15] MEDS ORDERED: guaiFENesin/D-METHORPHAN HB 10 ML UNIT-DOSE CUPS PO PRN (23:21)
[2017-08-15] MEDS ORDERED: MAG HYDROX/AL HYDROX/SIMETH 30 ML UNIT-DOSE CUP PO PRN (23:21)
[2017-08-15] MEDS ORDERED: MENTHOL/PHENOL 1 EACH UD MM PRN (23:21)
[2017-08-15] MEDS ORDERED: P-EPHED 60MG/TRIPROLIDI 2.5MG TABLET PO PRN (23:21)
[2017-08-15] MEDS ORDERED: diazePAM 5 MG TABLET PO PRN (23:26)
[2017-08-16] MEDS ORDERED: METHADONE HCL 10 MG TABLET (FOR DETOX USE ONLY) PO ONE ×4 (00:16→23:00)
[2017-08-16 09:59] LABS: HEMATOCRIT 38.1 % (35.4-49); HEMOGLOBIN 13.3 GM/dL (11.7-16.9); MCH 30.8 pg (25.7-33.7); MEAN PLT VOLUME 9.2 fl (7.5-11.1); PLATELET COUNT 173 K/MM3 (134-434); RBC 4.33 M/mm3 (4.00-5.60); RDW 12.7 % (11.9-15.9)
[2017-08-16 10:08] LABS: ALBUMIN 3.2 g/dl (3.4-5.0); ALK PHOS 64 U/L (45-117); ANION GAP 5 (8-16); BILIRUBIN,TOTAL 0.5 mg/dL (0.2-1.0); BLOOD UREA NITROGEN 13 mg/dL (7-18); CHLORIDE 107 mmol/L (98-107); CO2 29 mmol/L (21-32); CREATININE 0.7 mg/dL (0.7-1.3); GLUCOSE,RANDOM 82 mg/dL (74-106); POTASSIUM 3.9 mmol/L (3.5-5.1); SGOT/AST 22 U/L (15-37); SGPT/ALT 23 U/L (12-78); SODIUM 141 mmol/L (136-145); TOT PROT 6.5 g/dl (6.4-8.2)
[2017-08-16 10:09] LABS: CALCIUM 8.6 mg/dL (8.5-10.1)
[2017-08-16] MEDS: NICOTINE 14 MG/24 HOURS TOPICAL PATCH TD SCH (10:11)
[2017-08-16] MEDS: PRENATAL VITAMINS W/ FOLIC ACID TABLET (FP) PO SCH (10:11)
[2017-08-16] MEDS: diazePAM 5 MG TABLET PO PRN ×3 (10:11→22:34)
--- NOTE | 2017-08-16 11:44 | PN ---
[facility]HS COWS - Scale Resting Pulse: 0= [place] 80 or Below Sweatin=Flushed/Facial Moisture Restless Observation: 0= Sits Still Pupil Size: 0= Normal to Room Light Bone or Joint Aches: 2= Severe Diffuse Aches Runny Nose/ Eye Tearin= Nasal Congestion GI Upset > 30mins: 1= Stomach Cramp Tremor Observation of Outstretched Hands: 2= Slight Tremor Visible Yawning Observation: 2= >3x During Session Anxiety or Irritability: 2=Irritable/Anxious Goose Flesh Skin: 0=Smooth Skin COWS Score: 12 BHS Progress Note (SOAP) Subjective: Tremors, Fatigue, Body Aches, Sweating. Objective: PATIENT A & O X 3, OBSERVED AMBULATING ON UNIT. NO ACUTE DISTRESS. PATIENT DENIES ANY KNOWN HISTORY OF CARDIOVASCULAR DISEASE OR ECG ABNORMALITY. PATIENT DENIES CHEST PAIN, SOB, AND DIZZINESS. 08/16/17 11:42 Vital Signs Temperature 97.0 F L 08/16/17 10:03 Pulse Rate 75 08/16/17 10:03 Respiratory Rate 20 08/16/17 10:03 Blood Pressure 101/66 08/16/17 10:03 O2 Sat by Pulse Oximetry (%) Laboratory Tests 08/16/17 08/16/17 07:30 07:30 WBC 5.0 D RBC 4.33 Hgb 13.3 D Hct 38.1 MCV 88.0 MCH 30.8 MCHC 35.0 RDW 12.7 Plt Count 173 D MPV 9.2 Sodium 141 Potassium 3.9 Chloride 107 Carbon Dioxide 29 Anion Gap 5 L BUN 13 Creatinine 0.7 Creat Clearance w eGFR > 60 Random Glucose 82 Calcium 8.6 Total Bilirubin 0.5 D AST 22 ALT 23 D Alkaline Phosphatase 64 D Total Protein 6.5 D Albumin 3.2 L D LABS NOTED. UA RESULTS PENDING. 08/16/17 11:45 Assessment: 08/16/17 11:43 WITHDRAWAL SYMPTOMS. Plan: CONTINUE DETOX. INCREASE DAILY PO FLUID INTAKE.
--- NOTE | 2017-08-16 13:51 | EKG ---
Test Reason : Blood Pressure : / mmHG Vent. Rate : 071 BPM Atrial Rate : 071 BPM P-R Int : 132 ms QRS Dur : 100 ms QT Int : 420 ms P-R-T Axes : 022 -33 024 degrees QTc Int : 456 ms NORMAL SINUS RHYTHM LEFT AXIS DEVIATION ABNORMAL ECG WHEN COMPARED WITH ECG OF 10-MAY-2017 18:25, NO SIGNIFICANT CHANGE WAS FOUND Confirmed by MD Nunez Edward ([id number]) on 08/16/2017 1:51:09 PM Referred By: Confirmed By:Morteza Nunez MD
[2017-08-16] MEDS: THIAMINE HCL 100 MG TABLET (FP) PO SCH (22:31)
--- NOTE | 2017-08-17 07:06 | EKG ---
Test Reason : Blood Pressure : / mmHG Vent. Rate : 062 BPM Atrial Rate : 062 BPM P-R Int : 148 ms QRS Dur : 094 ms QT Int : 432 ms P-R-T Axes : 050 -51 -15 degrees QTc Int : 438 ms NORMAL SINUS RHYTHM LEFT ANTERIOR FASCICULAR BLOCK ABNORMAL ECG WHEN COMPARED WITH ECG OF 16-AUG-2017 00:24, INVERTED T WAVES HAVE REPLACED NONSPECIFIC T WAVE ABNORMALITY IN INFERIOR LEADS Confirmed by MD Mayra, Morteza ([id number]) on 08/16/2017 1:50:18 PM Referred By: Confirmed By:Morteza Nunez MD
[2017-08-17] MEDS: diazePAM 5 MG TABLET PO PRN ×4 (07:27→22:08)
[2017-08-17] MEDS ORDERED: METHADONE HCL 10 MG TABLET (FOR DETOX USE ONLY) PO ONE (10:00)
[2017-08-17] MEDS ORDERED: METHADONE HCL 5 MG TABLET (FOR DETOX USE ONLY) PO ONE (10:00)
[2017-08-17] MEDS: PRENATAL VITAMINS W/ FOLIC ACID TABLET (FP) PO SCH (10:21)
[2017-08-17] MEDS: NICOTINE 14 MG/24 HOURS TOPICAL PATCH TD SCH (10:21)
[2017-08-17] MEDS: NICOTINE POLACRILEX 2 MG GUM BC PRN ×2 (10:22→17:32)
--- NOTE | 2017-08-17 12:17 | PN ---
BHS COWS - Scale Resting Pulse: 1= [place] 81-100 Sweatin= Chills/Flushing Restless Observation: 1= Difficult to Sit Still Pupil Size: 0= Normal to Room Light Bone or Joint Aches: 0= None Runny Nose/ Eye Tearin= Runny Nose/Eyes GI Upset > 30mins: 0= None Tremor Observation of Outstretched Hands: 0= None Yawning Observation: 2= >3x During Session Anxiety or Irritability: 2=Irritable/Anxious Goose Flesh Skin: 3=Piloerection COWS Score: 12 BHS Progress Note (SOAP) Subjective: Interrupted Sleep, Fatigue, Constipation. Objective: PATIENT A & O X 3, OBSERVED AMBULATING ON UNIT. NO ACUTE DISTRESS. PATIENT DENIES CHEST PAIN, DIZZINESS, AND SOB. 08/17/17 12:16 Vital Signs Temperature 96.5 F L 08/17/17 09:08 Pulse Rate 88 08/17/17 09:08 Respiratory Rate 20 08/17/17 09:08 Blood Pressure 114/78 08/17/17 09:08 O2 Sat by Pulse Oximetry (%) Laboratory Tests 08/16/17 08/16/17 08/16/17 07:30 07:30 07:30 WBC 5.0 D RBC 4.33 Hgb 13.3 D Hct 38.1 MCV 88.0 MCH 30.8 MCHC 35.0 RDW 12.7 Plt Count 173 D MPV 9.2 Sodium 141 Potassium 3.9 Chloride 107 Carbon Dioxide 29 Anion Gap 5 L BUN 13 Creatinine 0.7 Creat Clearance w eGFR > 60 Random Glucose 82 Calcium 8.6 Total Bilirubin 0.5 D AST 22 ALT 23 D Alkaline Phosphatase 64 D Total Protein 6.5 D Albumin 3.2 L D RPR Titer Nonreactive LABS NOTED. Assessment: 08/17/17 12:16 WITHDRAWAL SYMPTOMS. Plan: CONTINUE DETOX. INCREASE DAILY PO FLUID INTAKE.
[2017-08-17 19:14] LABS: URINE APPEARANCE CLEAR; URINE BILIRUBIN NEGATIVE (<2.0 mg/dL); URINE COLOR YELLOW; URINE GLUCOSE (UA) NEGATIVE (NEGATIVE); URINE KETONE NEGATIVE (NEGATIVE); URINE LEUK ESTERASE NEGATIVE (NEGATIVE); URINE NITRITE NEGATIVE (NEGATIVE); URINE PROTEIN NEGATIVE (NEGATIVE)
[2017-08-17] MEDS: THIAMINE HCL 100 MG TABLET (FP) PO SCH (22:08)
[2017-08-17] MEDS: MELATONIN 5 MG TABLETS PO PRN (22:08)
[2017-08-18] MEDS: diazePAM 5 MG TABLET PO PRN ×5 (02:39→22:42)
[2017-08-18] MEDS ORDERED: METHADONE HCL 5 MG TABLET (FOR DETOX USE ONLY) PO ONE ×2 (10:00)
[2017-08-18] MEDS: PRENATAL VITAMINS W/ FOLIC ACID TABLET (FP) PO SCH (10:14)
[2017-08-18] MEDS: NICOTINE 14 MG/24 HOURS TOPICAL PATCH TD SCH (10:14)
--- NOTE | 2017-08-18 13:48 | PN ---
BHS Progress Note (SOAP) Subjective: Fatigue, Constipation, Sweating. Objective: PATIENT A & O X 3, OBSERVED AMBULATING ON UNIT. NO ACUTE DISTRESS. PATIENT DENIES CHEST PAIN, DIZZINESS, AND SOB. Vital Signs Temperature 97.0 F L 08/18/17 13:19 Pulse Rate 73 08/18/17 13:19 Respiratory Rate 20 08/18/17 13:19 Blood Pressure 110/73 08/18/17 13:19 O2 Sat by Pulse Oximetry (%) Laboratory Tests 08/16/17 08/16/17 08/16/17 07:30 07:30 07:30 WBC 5.0 D RBC 4.33 Hgb 13.3 D Hct 38.1 MCV 88.0 MCH 30.8 MCHC 35.0 RDW 12.7 Plt Count 173 D MPV 9.2 Sodium 141 Potassium 3.9 Chloride 107 Carbon Dioxide 29 Anion Gap 5 L BUN 13 Creatinine 0.7 Creat Clearance w eGFR > 60 Random Glucose 82 Calcium 8.6 Total Bilirubin 0.5 D AST 22 ALT 23 D Alkaline Phosphatase 64 D Total Protein 6.5 D Albumin 3.2 L D Urine Color Urine Appearance Urine pH Ur Specific [place] Urine Protein Urine Glucose (UA) Urine Ketones Urine Blood Urine Nitrite Urine Bilirubin Urine Urobilinogen Ur Leukocyte Esterase RPR Titer Nonreactive 08/17/17 13:30 WBC RBC Hgb Hct MCV MCH MCHC RDW Plt Count MPV Sodium Potassium Chloride Carbon Dioxide Anion Gap BUN Creatinine Creat Clearance w eGFR Random Glucose Calcium Total Bilirubin AST ALT Alkaline Phosphatase Total Protein Albumin Urine Color Yellow Urine Appearance Clear Urine pH 7.0 Ur Specific [place] 1.017 Urine Protein Negative Urine Glucose (UA) Negative Urine Ketones Negative Urine Blood Negative Urine Nitrite Negative Urine Bilirubin Negative Urine Urobilinogen 2.0 Ur Leukocyte Esterase Negative RPR Titer LABS NOTED. 08/18/17 13:44 08/18/17 13:46 08/18/17 13:46 Assessment: 08/18/17 13:45 WITHDRAWAL SYMPTOMS. Plan: CONTINUE DETOX. INCREASE DAILY PO FLUID INTAKE. PATIENT ADVISED TO FOLLOW-UP WITH [employer] [place]. [place] ([place] AFTER DISCHARGE FROM DETOX FOR MEDICAL ASSESSMENT AND FOR ECG ABNORMALITY NOTED WHILE ADMITTED FOR DETOX.
[2017-08-18] MEDS: NICOTINE POLACRILEX 2 MG GUM BC PRN ×2 (17:39→22:44)
[2017-08-18] MEDS ORDERED: COLLOIDAL OATMEAL 1 BAR EACH TP PRN (19:14)
[2017-08-18] MEDS: THIAMINE HCL 100 MG TABLET (FP) PO SCH (22:42)
[2017-08-18] MEDS: MELATONIN 5 MG TABLETS PO PRN (23:06)
[2017-08-19] MEDS ORDERED: METHADONE HCL 5 MG TABLET (FOR DETOX USE ONLY) PO ONE (10:00)
[2017-08-19] MEDS ORDERED: METHADONE HCL 10 MG TABLET (FOR DETOX USE ONLY) PO ONE (10:00)
[2017-08-19] MEDS: NICOTINE 14 MG/24 HOURS TOPICAL PATCH TD SCH (10:09)
[2017-08-19] MEDS: NICOTINE POLACRILEX 2 MG GUM BC PRN ×2 (10:10→22:18)
[2017-08-19] MEDS: PRENATAL VITAMINS W/ FOLIC ACID TABLET (FP) PO SCH (10:10)
--- NOTE | 2017-08-19 12:13 | PN ---
BHS Progress Note (SOAP) Subjective: Interrupted Sleep, Sweating, Fatigue. Objective: PATIENT A & O X 3, OBSERVED AMBULATING ON UNIT. NO ACUTE DISTRESS. 08/19/17 12:10 Vital Signs Temperature 97.6 F 08/19/17 06:09 Pulse Rate 64 08/19/17 06:09 Respiratory Rate 18 08/19/17 06:09 Blood Pressure 109/78 08/19/17 06:09 O2 Sat by Pulse Oximetry (%) Laboratory Tests 08/16/17 08/16/17 08/16/17 07:30 07:30 07:30 WBC 5.0 D RBC 4.33 Hgb 13.3 D Hct 38.1 MCV 88.0 MCH 30.8 MCHC 35.0 RDW 12.7 Plt Count 173 D MPV 9.2 Sodium 141 Potassium 3.9 Chloride 107 Carbon Dioxide 29 Anion Gap 5 L BUN 13 Creatinine 0.7 Creat Clearance w eGFR > 60 Random Glucose 82 Calcium 8.6 Total Bilirubin 0.5 D AST 22 ALT 23 D Alkaline Phosphatase 64 D Total Protein 6.5 D Albumin 3.2 L D Urine Color Urine Appearance Urine pH Ur Specific [place] Urine Protein Urine Glucose (UA) Urine Ketones Urine Blood Urine Nitrite Urine Bilirubin Urine Urobilinogen Ur Leukocyte Esterase RPR Titer Nonreactive 08/17/17 13:30 WBC RBC Hgb Hct MCV MCH MCHC RDW Plt Count MPV Sodium Potassium Chloride Carbon Dioxide Anion Gap BUN Creatinine Creat Clearance w eGFR Random Glucose Calcium Total Bilirubin AST ALT Alkaline Phosphatase Total Protein Albumin Urine Color Yellow Urine Appearance Clear Urine pH 7.0 Ur Specific [place] 1.017 Urine Protein Negative Urine Glucose (UA) Negative Urine Ketones Negative Urine Blood Negative Urine Nitrite Negative Urine Bilirubin Negative Urine Urobilinogen 2.0 Ur Leukocyte Esterase Negative RPR Titer LABS NOTED. Assessment: 08/19/17 12:10 WITHDRAWAL SYMPTOMS. Plan: CONTINUE DETOX. INCREASE DAILY PO FLUID INTAKE.
--- NOTE | 2017-08-19 13:45 | PN ---
[facility] Progress Note Note: Psychiatry Attending's note : Approached by patient. Complaint : insomnia. Request : hypnotic medication. Choices of medications discussed with patient. Mr Shahid agrees to take zolpidem.Side effects/benefits reviewed. Patient is made aware of potential for parasomnias (sleep-walking). Agrees with this careplan.Ambien 10 mg po hs prn.Ordered. Principles of sleep hygiene are revisited with the patient. Benign hospital course.
[2017-08-19] MEDS: THIAMINE HCL 100 MG TABLET (FP) PO SCH (22:16)
[2017-08-19] MEDS: ZOLPIDEM TARTRATE 10 MG TABLET (PARK CARE ONLY) PO PRN (22:17)
[2017-08-20] MEDS ORDERED: METHADONE HCL 5 MG TABLET (FOR DETOX USE ONLY) PO ONE (06:00)
[2017-08-20] MEDS ORDERED: METHADONE HCL 10 MG TABLET (FOR DETOX USE ONLY) PO ONE (10:00)
[2017-08-20] MEDS: NICOTINE 14 MG/24 HOURS TOPICAL PATCH TD SCH (10:09)
[2017-08-20] MEDS: NICOTINE POLACRILEX 2 MG GUM BC PRN ×2 (10:09→17:18)
[2017-08-20] MEDS: PRENATAL VITAMINS W/ FOLIC ACID TABLET (FP) PO SCH (10:09)
--- NOTE | 2017-08-20 15:54 | PN ---
BHS Progress Note (SOAP) Subjective: Sweating, Fatigue. Objective: PATIENT A & O X 3, OBSERVED AMBULATING ON UNIT. NO ACUTE DISTRESS. 08/20/17 15:57 Vital Signs Temperature 96.5 F L 08/20/17 14:55 Pulse Rate 76 08/20/17 14:55 Respiratory Rate 18 08/20/17 14:55 Blood Pressure 117/74 08/20/17 14:55 O2 Sat by Pulse Oximetry (%) Laboratory Tests 08/16/17 08/16/17 08/16/17 07:30 07:30 07:30 WBC 5.0 D RBC 4.33 Hgb 13.3 D Hct 38.1 MCV 88.0 MCH 30.8 MCHC 35.0 RDW 12.7 Plt Count 173 D MPV 9.2 Sodium 141 Potassium 3.9 Chloride 107 Carbon Dioxide 29 Anion Gap 5 L BUN 13 Creatinine 0.7 Creat Clearance w eGFR > 60 Random Glucose 82 Calcium 8.6 Total Bilirubin 0.5 D AST 22 ALT 23 D Alkaline Phosphatase 64 D Total Protein 6.5 D Albumin 3.2 L D Urine Color Urine Appearance Urine pH Ur Specific [place] Urine Protein Urine Glucose (UA) Urine Ketones Urine Blood Urine Nitrite Urine Bilirubin Urine Urobilinogen Ur Leukocyte Esterase RPR Titer Nonreactive 08/17/17 13:30 WBC RBC Hgb Hct MCV MCH MCHC RDW Plt Count MPV Sodium Potassium Chloride Carbon Dioxide Anion Gap BUN Creatinine Creat Clearance w eGFR Random Glucose Calcium Total Bilirubin AST ALT Alkaline Phosphatase Total Protein Albumin Urine Color Yellow Urine Appearance Clear Urine pH 7.0 Ur Specific [place] 1.017 Urine Protein Negative Urine Glucose (UA) Negative Urine Ketones Negative Urine Blood Negative Urine Nitrite Negative Urine Bilirubin Negative Urine Urobilinogen 2.0 Ur Leukocyte Esterase Negative RPR Titer LABS NOTED. Assessment: 08/20/17 15:58 WITHDRAWAL SYMPTOMS. Plan: CONTINUE DETOX. PATIENT SCHEDULED FOR D/C TOMORROW.
[2017-08-20] MEDS: THIAMINE HCL 100 MG TABLET (FP) PO SCH (22:15)
[2017-08-20] MEDS: ZOLPIDEM TARTRATE 10 MG TABLET (PARK CARE ONLY) PO PRN (22:15)
[2017-08-21] MEDS: NICOTINE POLACRILEX 2 MG GUM BC PRN (05:43)
[2017-08-21] MEDS ORDERED: METHADONE HCL 5 MG TABLET (FOR DETOX USE ONLY) PO ONE (06:00)
[2017-08-21 06:12] VITALS: BP 110/70; PULSE 67; TEMP 96.7
--- NOTE | 2017-08-21 11:48 | PN ---
S Progress Note (SOAP) Subjective: DETOX COMPLETED. ALERT O X 3.
--- NOTE | 2017-08-22 15:52 | DS ---
[facility] Detox Discharge Summary Admission Date: 08/15/17 Discharge Date: 08/21/17 - History Present History: Cannabis Dependence, Opioid Dependence Additional Comments: DETOX COMPLETED. ALERT O X 3. NAD. PT HAS PRIMARY CARE AT [facility] AND PT INSTRUCTED TO F/U NEEDED. Pertinent Past History: PLEASE SEE DX BELOW - Physical Exam Results Vital Signs: Vital Signs Temperature 96.7 F L 08/21/17 06:12 Pulse Rate 67 08/21/17 06:12 Respiratory Rate 18 08/21/17 06:12 Blood Pressure 110/70 08/21/17 06:12 O2 Sat by Pulse Oximetry (%) Pertinent Admission Physical Exam Findings: WITHDRAWAL SX Laboratory Tests 08/16/17 08/16/17 08/16/17 07:30 07:30 07:30 WBC 5.0 D RBC 4.33 Hgb 13.3 D Hct 38.1 MCV 88.0 MCH 30.8 MCHC 35.0 RDW 12.7 Plt Count 173 D MPV 9.2 Sodium 141 Potassium 3.9 Chloride 107 Carbon Dioxide 29 Anion Gap 5 L BUN 13 Creatinine 0.7 Creat Clearance w eGFR > 60 Random Glucose 82 Calcium 8.6 Total Bilirubin 0.5 D AST 22 ALT 23 D Alkaline Phosphatase 64 D Total Protein 6.5 D Albumin 3.2 L D Urine Color Urine Appearance Urine pH Ur Specific [place] Urine Protein Urine Glucose (UA) Urine Ketones Urine Blood Urine Nitrite Urine Bilirubin Urine Urobilinogen Ur Leukocyte Esterase RPR Titer Nonreactive 08/17/17 13:30 WBC RBC Hgb Hct MCV MCH MCHC RDW Plt Count MPV Sodium Potassium Chloride Carbon Dioxide Anion Gap BUN Creatinine Creat Clearance w eGFR Random Glucose Calcium Total Bilirubin AST ALT Alkaline Phosphatase Total Protein Albumin Urine Color Yellow Urine Appearance Clear Urine pH 7.0 Ur Specific [place] 1.017 Urine Protein Negative Urine Glucose (UA) Negative Urine Ketones Negative Urine Blood Negative Urine Nitrite Negative Urine Bilirubin Negative Urine Urobilinogen 2.0 Ur Leukocyte Esterase Negative RPR Titer - Treatment Hospital Course: Detox Protocol Followed, Detoxed Safely, Responded well, Discharged Condition Good, Rehab Referral Accepted Patient has Accepted a Rehab Referral to: [facility] - Medication Discharge Medications: Ambulatory Orders NK [No Known Home Medication] 05/10/17 - AMA Did Patient Leave Against Medical Advice: No
== END 2017-08-21 09:00 | disposition home or self-care (01) | DRG 773 ==
LOC: YASAS 18:26 → Y3N 21:38
PROVIDERS: ADMIT Internal Medicine; ATTEND Internal Medicine
PROC: HZ2ZZZZ Detoxification Services for Substance Abuse Treatment (ICD-10-PCS; principal; 2017-08-21)
DX: F11.23 Opioid dependence with withdrawal (principal); F12.10 Cannabis abuse, uncomplicated; F17.210 Nicotine dependence, cigarettes, uncomplicated; F34.1 Dysthymic disorder
CPT/HCPCS: 36415; 80053; 81003; 85027; 86593; 93005; 93010

== ENCOUNTER 2017-11-28 11:45 | Inpatient (IN) | payer OTHER ==
[2017-11-28 12:09] VITALS: BMI 24.8
--- NOTE | 2017-11-28 18:13 | HP ---
"COWS - Scale Resting Pulse: 0= [place] 80 or Below Sweatin= Chills/Flushing Restless Observation: 3= Extraneous Movement Pupil Size: 0= Normal to Room Light Bone or Joint Aches: 4=Acute Joint/Muscle Pain Runny Nose/ Eye Tearin= Runny Nose/Eyes GI Upset > 30mins: 0= None Tremor Observation: 1= Tremor [place], Not Seen Yawning Observation: 1= 1-2x During Session Anxiety or Irritability: 2=Irritable/Anxious Goose Flesh Skin: 0=Smooth Skin COWS Score: 14 Admission [facility] Chief Complaint: HEROIN WITHDRAWAL SX Allergies/Adverse Reactions: Allergies Allergy/AdvReac Type Severity Reaction Status Date / Time No Known Allergies Allergy Verified 08/15/17 21:39 History of Present Illness: 37 Y/O H/MALE WITH A HX HEROIN DEPENDENCE SEEKING DETOX TX. PT REPORTS HE WAS ON SUBOXONE TX BUT STOPPED.(SEE BELOW). DENIES ANY PAST MEDICAL PROBLEMS. Confidential Drug Utilization Report Search Terms: ry shahid, 1980 Search Date: 11/28/2017 06:06:29 PM The Drug Utilization Report below displays all of the controlled substance prescriptions, if any, that your patient has filled in the last twelve months. The information displayed on this report is compiled from pharmacy submissions to the Department, and accurately reflects the information as submitted by the pharmacies. This report was requested by: Mariana Jewell | Reference #: [id number] You have not added a [facility] number. Keeping your [facility] number(s) up to date on the My [facility] Numbers page will enable the separation of your prescriptions from others ' in the search results. Others' Prescriptions Patient Name: Ry Shahid Date: 1980 Address: [address] [place] [address] Sex: Male Rx Written Rx Dispensed Drug Quantity Days Supply Prescriber Name 08/24/2017 08/24/2017 buprenorphine-naloxone 8-2 mg sl tablet 14 14 Addi Gunn Patient Name: Ry Shahid Date: 1980 Address: [address] [place] [address] Sex: Male Rx Written Rx Dispensed Drug Quantity Days Supply Prescriber Name 02/01/2017 02/01/2017 suboxone 4 mg-1 mg sl film 15 15 Ho, Adriano Garcia MD * - Drugs marked with an asterisk are compound drugs. If the compound drug is made up of more than one controlled substance, then each controlled substance will be a separate row in the table. Click the Report Suspicious Activity button to report information related to controlled substance suspicious activity to the [place] [employer]. Click the Send Questions/Comments button to send questions about this report to the [place] [employer], or call . Exam Limitations: No Limitations - Ebola screening Have you traveled outside of the country in the last 21 days: No (N) Have you had contact with anyone from an Ebola affected area: No Have you been sick,other than usual withdrawal symptoms: No Do you have a fever: No - Review of Systems Constitutional: Chills, Loss of Appetite, Night Sweats, Changes in sleep (NEEDS MED TO SLEEP) EENT: reports: Tearing, Nose Congestion Respiratory: reports: No Symptoms reported Cardiac: reports: No Symptoms Reported GI: reports: Constipated, Nausea, Poor Appetite, Vomiting : reports: Dysuria (OPIOID INDUCE) Musculoskeletal: reports: Back Pain Integumentary: reports: No Symptoms Reported Neuro: reports: No Symptoms reported Endocrine: reports: No Symptoms Reported Hematology: reports: No Symptoms Reported Psychiatric: reports: Orientated x3, Anxious Other Systems: Reviewed and Negative Patient History - Patient Medical History Hx Anemia: No Hx Asthma: No Hx Chronic Obstructive Pulmonary Disease (COPD): No Hx Cancer: No Hx Cardiac Disorders: No Hx Congestive Heart Failure: No Hx Hypertension: No Hx Hypercholesterolemia: No Hx Pacemaker: No HX Cerebrovascular Accident: No Hx Seizures: No Hx Dementia: No Hx Diabetes: No Hx Gastrointestinal Disorders: No Hx Liver Disease: No Hx Genitourinary Disorders: No Hx Sexually Transmitted Disorders: No Hx Renal Disease (ESRD): No Hx Thyroid Disease: No Hx Human Immunodeficiency Virus (HIV): No (Negative hx 2017) Hx Hepatitis C: No Hx Depression: No Hx Suicide Attempt: No (DENIES S/I) Hx Bipolar Disorder: No Hx Schizophrenia: No Other Medical History: C/O INSOMNIA AND TOOK AMBIEN IN THE PAST - Patient Surgical History Past Surgical History: No Hx Neurologic Surgery: No Hx Cataract Extraction: No Hx Cardiac Surgery: No Hx Lung Surgery: No Hx Breast Surgery: No Hx Breast Biopsy: No Hx Abdominal Surgery: No Hx Appendectomy: No Hx Cholecystectomy: No Hx Genitourinary Surgery: No Hx Orthopedic Surgery: No Anesthesia Reaction: No - PPD History Previous Implant?: Yes Documented Results: Negative w/proof Implanted On Prior [facility] Admission?: Yes Date: 05/12/17 Results: 0 mm PPD to be Administered?: No - Reproductive History Patient is a Female of Child Bearing Age (11 -55 yrs old): No (MALE) - Smoking Cessation Smoking history: Current every day smoker Have you smoked in the past 12 months: Yes Aproximately how many cigarettes per day: 6 Cigars Per Day: 0 Hx Chewing Tobacco Use: No Initiated information on smoking cessation: Yes 'Breaking Loose' booklet given: 11/28/17 - Substance & Tx. History Hx Alcohol Use: Yes (OCASSIONALLY) Hx Substance Use: Yes (HEROIN/MARIJAUNA) Substance Use Type: Heroin, Marijuana Hx Substance Use Treatment: Yes (LAST TX AT [facility] [[email or web address] - Substances Abused Heroin Route: Inhalation Frequency: Daily Amount used: 5-6 bags Age of first use: 35 Date of Last Use: 11/27/17 Marijuana/Hashish Route: Smoking Frequency: Daily Amount used: 1 blunt Age of first use: 27 Date of Last Use: 11/27/17 Family Disease History - Family Disease History Family Disease History: [place]: Father (), Other: Father Admission Physical Exam S - Vital Signs Vital Signs: Vital Signs - 24 hr 11/28/17 12:05 Temperature 98.7 F Pulse Rate 60 Respiratory 18 Rate Blood Pressure 119/75 - Physical General Appearance: Yes: Moderate Distress, Irritable, Anxious HEENTM: Yes: EOMI, BAR, Pharynx Normal Respiratory: Yes: Chest Non-Tender, Lungs Clear, Normal Breath Sounds, No Respiratory Distress Neck: Yes: Within Normal Limits, No masses,lesions,Nodules, Supple, Trachea in good position Breast: Yes: Breast Exam Deferred Cardiology: Yes: Regular Rhythm, Regular Rate, S1, S2 Abdominal: Yes: Normal Bowel Sounds, Non Tender, Flat, Soft Genitourinary: Yes: Other (N/C) Back: Yes: Within Normal Limits Musculoskeletal: Yes: full range of Motion, Gait Steady Extremities: Yes: Normal Range of Motion, Non-Tender Neurological: Yes: medical technicians II-XII NML intact, Fully Oriented, Alert, Motor Strength 5/5 Integumentary: Yes: Dry, Warm Lymphatic: Yes: Within Normal Limits - Diagnostic (1) Nicotine dependence Current Visit: Yes Status: Acute Qualifiers: Nicotine product type: cigarettes Substance use status: in withdrawal Qualified Code(s): F17.213 - Nicotine dependence, cigarettes, with withdrawal (2) Opioid dependence with withdrawal Current Visit: Yes Status: Acute (3) Weight loss Current Visit: Yes Status: Acute (4) Cannabis dependence, uncomplicated Current Visit: Yes Status: Acute Cleared for Admission [facility] - Detox or Rehab [facility] Level of Care: Medically Managed Detox Regimen/Protocol: Methadone [facility] Breath Alcohol Content Breath Alcohol Content: 0 Urine Drug Screen - Results Drug Screen Negative: No Urine Drug Screen Results: THC-Marijuana, OPI-Opiates"
[2017-11-28] MEDS ORDERED: guaiFENesin/D-METHORPHAN HB 10 ML UNIT-DOSE CUPS PO PRN (18:21)
[2017-11-28] MEDS ORDERED: LOPERAMIDE HCL 2 MG CAPSULE PO PRN (18:21)
[2017-11-28] MEDS ORDERED: MAGNESIUM HYDROX 2400MG/30ML ORAL SUSPENSION 30 ML CUP PO PRN (18:21)
[2017-11-28] MEDS ORDERED: ACETAMINOPHEN 325 MG TABLET (FP) PO PRN (18:21)
[2017-11-28] MEDS ORDERED: P-EPHED 60MG/TRIPROLIDI 2.5MG TABLET PO PRN (18:21)
[2017-11-28] MEDS ORDERED: MAG HYDROX/AL HYDROX/SIMETH 30 ML UNIT-DOSE CUP PO PRN (18:21)
[2017-11-28] MEDS ORDERED: MAGNESIUM CITRATE 300 ML BOTTLE PO PRN (18:21)
[2017-11-28] MEDS ORDERED: IBUPROFEN 400 MG TABLET (FP) PO PRN (18:21)
[2017-11-28] MEDS ORDERED: MENTHOL/PHENOL 1 EACH UD MM PRN (18:21)
[2017-11-28] MEDS ORDERED: METHADONE HCL 10 MG TABLET (FOR DETOX USE ONLY) PO ONE ×2 (18:45→23:00)
[2017-11-28] MEDS: NICOTINE 14 MG/24 HOURS TOPICAL PATCH TD SCH (19:10)
[2017-11-28] MEDS: diazePAM 5 MG TABLET PO PRN ×2 (19:48→23:55)
[2017-11-28] MEDS ORDERED: MELATONIN 5 MG TABLETS PO PRN (22:00)
[2017-11-28] MEDS: THIAMINE HCL 100 MG TABLET (FP) PO SCH (22:26)
[2017-11-29 01:06] LABS: URINE APPEARANCE CLEAR; URINE BILIRUBIN NEGATIVE (<2.0 mg/dL); URINE COLOR YELLOW; URINE GLUCOSE (UA) NEGATIVE (NEGATIVE); URINE KETONE NEGATIVE (NEGATIVE); URINE LEUK ESTERASE NEGATIVE (NEGATIVE); URINE NITRITE NEGATIVE (NEGATIVE); URINE PROTEIN NEGATIVE (NEGATIVE); URINE UROBILINOGEN 4.0 E.U/dl mg/dL (0.2-1.0)
[2017-11-29] MEDS: diazePAM 5 MG TABLET PO PRN ×5 (04:50→23:18)
--- NOTE | 2017-11-29 09:05 | CONSULT ---
[facility] Psychiatric Consult - Data Date of interview: 11/29/17 Admission source: [facility] Identifying data: Patient is a 37 year old single male, father of one, domiciled , and working "off the books". This is one of multiple admissions for patient. Pt. admitted to for opioid dependence. Substance Abuse History: Smoking Cessation. Smoking history: Current every day smoker. Have you smoked in the past 12 months: Yes. Aproximately how many cigarettes per day: 6. Cigars Per Day: 0. Hx Chewing Tobacco Use: No. Initiated information on smoking cessation: Yes. 'Breaking Loose' booklet given : 11/28/17. - Substance & Tx. History. Hx Alcohol Use: Yes (OCASSIONALLY). Hx Substance Use: Yes (HEROIN/MARIJAUNA). Substance Use Type: Heroin, Marijuana. Hx Substance Use Treatment: Yes (LAST TX AT [facility] - Substances Abused. Heroin. Route: Inhalation. Frequency: Daily. Amount used: 5-6 bags. Age of first use: 35. Date of Last Use: 11/27/17. Marijuana/ Hashish. Route: Smoking. Frequency: Daily. Amount used: 1 blunt. Age of first use: 27. Date of Last Use: 11/27/17 Medical History: denies. Psychiatric History: Patient denies h/o psychiatric hospitalization, outpatient care, and suicide attempt. Pt. reports poor sleep. Physical/Sexual Abuse/Trauma History: denies. Mental Status Exam - Mental Status Exam Alert and Oriented to: Time, Place, Person Cognitive Function: Good Patient Appearance: Well Groomed Mood: Hopeful Affect: Appropriate, Mood Congruent Patient Behavior: Appropriate, Cooperative Speech Pattern: Clear, Appropriate Voice Loudness: Normal Thought Process: Intact, Goal Oriented Thought Disorder: Not Present Hallucinations: Denies Suicidal Ideation: Denies Homicidal Ideation: Denies Insight/Judgement: Poor Sleep: Poorly Appetite: Fair Muscle strength/Tone: Normal Gait/Station: Normal Psychiatric Findings - Problem List ([place] 1, 2,3) (1) Cannabis dependence, uncomplicated Current Visit: Yes Status: Acute (2) Nicotine dependence Current Visit: Yes Status: Acute Qualifiers: Nicotine product type: cigarettes Substance use status: in withdrawal Qualified Code(s): F17.213 - Nicotine dependence, cigarettes, with withdrawal (3) Opioid dependence with withdrawal Current Visit: Yes Status: Acute (4) Insomnia Current Visit: Yes Status: Acute - Initial Treatment Plan Initial Treatment Plan: Psychoeducation provided. Detoxification in progress. Ambien 10mg qhs prn ordered. Benefits and side effects discussed. Pt. made aware of the risk of parasomnia. Verbal consent given.
[2017-11-29] MEDS ORDERED: METHADONE HCL 10 MG TABLET (FOR DETOX USE ONLY) PO ONE (10:00)
[2017-11-29 10:36] LABS: HEMATOCRIT 38.4 % (35.4-49); HEMOGLOBIN 13.6 GM/dL (11.7-16.9); MCH 31.1 pg (25.7-33.7); MCHC 35.5 g/dl (32.0-35.9); MEAN CELL VOLUME 87.5 fl (80-96); MEAN PLT VOLUME 9.9 fl (7.5-11.1); PLATELET COUNT 176 K/MM3 (134-434); RBC 4.39 M/mm3 (4.00-5.60); RDW 13.4 % (11.9-15.9); WHITE BLOOD COUNT 5.9 K/mm3 (4.0-10.0)
[2017-11-29] MEDS: PRENATAL VITAMINS W/ FOLIC ACID TABLET (FP) PO SCH (10:40)
[2017-11-29] MEDS: NICOTINE 14 MG/24 HOURS TOPICAL PATCH TD SCH (10:40)
[2017-11-29 10:44] LABS: CALCIUM 8.8 mg/dL (8.5-10.1); CHLORIDE 105 mmol/L (98-107); POTASSIUM 3.9 mmol/L (3.5-5.1); SODIUM 141 mmol/L (136-145)
[2017-11-29] MEDS: NICOTINE POLACRILEX 2 MG GUM BC PRN ×2 (10:44→19:21)
[2017-11-29 10:48] LABS: ALBUMIN 3.6 g/dl (3.4-5.0); ALK PHOS 63 U/L (45-117); ANION GAP 7 (8-16); BILIRUBIN,TOTAL 0.9 mg/dL (0.2-1.0); BLOOD UREA NITROGEN 10 mg/dL (7-18); CO2 29 mmol/L (21-32); CREATININE 0.7 mg/dL (0.7-1.3); GLUCOSE,RANDOM 78 mg/dL (74-106); SGOT/AST 16 U/L (15-37); SGPT/ALT 19 U/L (12-78); TOT PROT 6.9 g/dl (6.4-8.2)
--- NOTE | 2017-11-29 13:17 | EKG ---
Test Reason : Blood Pressure : / mmHG Vent. Rate : 071 BPM Atrial Rate : 071 BPM P-R Int : 132 ms QRS Dur : 088 ms QT Int : 406 ms P-R-T Axes : 052 -47 002 degrees QTc Int : 441 ms NORMAL SINUS RHYTHM WITH SINUS ARRHYTHMIA LEFT AXIS DEVIATION SEPTAL INFARCT , AGE UNDETERMINED ABNORMAL ECG WHEN COMPARED WITH ECG OF 16-AUG-2017 09:21, NO SIGNIFICANT CHANGE WAS FOUND Confirmed by Cj Slade MD ([id number]) on 11/29/2017 1:16:23 PM Referred By: Confirmed By:Cj Slade MD
--- NOTE | 2017-11-29 14:50 | PN ---
BHS COWS - Scale Resting Pulse: 0= [place] 80 or Below Sweatin= Chills/Flushing Restless Observation: 3= Extraneous Movement Pupil Size: 1= Pupils >than Normal Bone or Joint Aches: 2= Severe Diffuse Aches Runny Nose/ Eye Tearin= Runny Nose/Eyes GI Upset > 30mins: 2= Nausea/Diarrhea Tremor Observation of Outstretched Hands: 2= Slight Tremor Visible Yawning Observation: 1= 1-2x During Session Anxiety or Irritability: 2=Irritable/Anxious Goose Flesh Skin: 0=Smooth Skin COWS Score: 16 S Progress Note (SOAP) Subjective: alert,irritable,anxious,interrupted sleep,tremor,pain in the bdoy and back Objective: 11/29/17 14:47 Vital Signs Temperature 98.2 F 11/29/17 14:23 Pulse Rate 61 11/29/17 14:23 Respiratory Rate 20 11/29/17 14:23 Blood Pressure 122/82 11/29/17 14:23 O2 Sat by Pulse Oximetry (%) ekg nsr with sinus arrhythmia 71/min qt/qtc 406/441 no chest pain,no sob,no dizziness Laboratory Last Values WBC 5.9 K/mm3 (4.0-10.0) 11/29/17 07:30 RBC 4.39 M/mm3 (4.00-5.60) 11/29/17 07:30 Hgb 13.6 GM/dL (11.7-16.9) 11/29/17 07:30 Hct 38.4 % (35.4-49) 11/29/17 07:30 MCV 87.5 fl (80-96) 11/29/17 07:30 MCH 31.1 pg (25.7-33.7) 11/29/17 07:30 MCHC 35.5 g/dl (32.0-35.9) 11/29/17 07:30 RDW 13.4 % (11.9-15.9) 11/29/17 07:30 Plt Count 176 K/MM3 (134-434) 11/29/17 07:30 MPV 9.9 fl (7.5-11.1) 11/29/17 07:30 Sodium 141 mmol/L (136-145) 11/29/17 07:30 Potassium 3.9 mmol/L (3.5-5.1) 11/29/17 07:30 Chloride 105 mmol/L (98-107) 11/29/17 07:30 Carbon Dioxide 29 mmol/L (21-32) 11/29/17 07:30 Anion Gap 7 (8-16) L 11/29/17 07:30 BUN 10 mg/dL (7-18) 11/29/17 07:30 Creatinine 0.7 mg/dL (0.7-1.3) 11/29/17 07:30 Creat Clearance w eGFR > 60 (>60) 11/29/17 07:30 Random Glucose 78 mg/dL (74-106) 11/29/17 07:30 Calcium 8.8 mg/dL (8.5-10.1) 11/29/17 07:30 Total Bilirubin 0.9 mg/dL (0.2-1.0) 11/29/17 07:30 AST 16 U/L (15-37) D 11/29/17 07:30 ALT 19 U/L (12-78) 11/29/17 07:30 Alkaline Phosphatase 63 U/L (45-117) 11/29/17 07:30 Total Protein 6.9 g/dl (6.4-8.2) 11/29/17 07:30 Albumin 3.6 g/dl (3.4-5.0) 11/29/17 07:30 Urine Color Yellow 11/28/17 23:20 Urine Appearance Clear 11/28/17 23:20 Urine pH 8.0 (5.0-8.0) 11/28/17 23:20 Ur Specific [place] 1.021 (1.001-1.035) 11/28/17 23:20 Urine Protein Negative (NEGATIVE) 11/28/17 23:20 Urine Glucose (UA) Negative (NEGATIVE) 11/28/17 23:20 Urine Ketones Negative (NEGATIVE) 11/28/17 23:20 Urine Blood Negative (NEGATIVE) 11/28/17 23:20 Urine Nitrite Negative (NEGATIVE) 11/28/17 23:20 Urine Bilirubin Negative (<2.0 mg/dL) 11/28/17 23:20 Urine Urobilinogen 4.0 e.u/dl mg/dL (0.2-1.0) 11/28/17 23:20 Ur Leukocyte Esterase Negative (NEGATIVE) 11/28/17 23:20 RPR Titer Nonreactive (NONREACTIVE) 11/29/17 07:30 Assessment: 11/29/17 14:50 withdrawal symptom Plan: continue detox
[2017-11-29] MEDS: THIAMINE HCL 100 MG TABLET (FP) PO SCH (22:08)
[2017-11-29] MEDS: ZOLPIDEM TARTRATE 10 MG TABLET (PARK CARE ONLY) PO PRN (22:10)
[2017-11-30] MEDS: diazePAM 5 MG TABLET PO PRN ×5 (03:12→22:24)
[2017-11-30] MEDS ORDERED: METHADONE HCL 5 MG TABLET (FOR DETOX USE ONLY) PO ONE (10:00)
[2017-11-30] MEDS: NICOTINE 14 MG/24 HOURS TOPICAL PATCH TD SCH (10:11)
[2017-11-30] MEDS: PRENATAL VITAMINS W/ FOLIC ACID TABLET (FP) PO SCH (10:11)
[2017-11-30] MEDS: NICOTINE POLACRILEX 2 MG GUM BC PRN (11:21)
--- NOTE | 2017-11-30 11:45 | PN ---
BHS COWS - Scale Resting Pulse: 0= [place] 80 or Below Sweatin= Chills/Flushing Restless Observation: 1= Difficult to Sit Still Pupil Size: 1= Pupils >than Normal Bone or Joint Aches: 2= Severe Diffuse Aches Runny Nose/ Eye Tearin= Nasal Congestion GI Upset > 30mins: 1= Stomach Cramp Tremor Observation of Outstretched Hands: 1= Tremor [place], Not Seen Yawning Observation: 0= None Anxiety or Irritability: 1=Feels Anxious/Irritable Goose Flesh Skin: 0=Smooth Skin COWS Score: 9 BHS Progress Note (SOAP) Subjective: interrupted sleep, sweats Objective: 11/30/17 11:43 Vital Signs Temperature 97.9 F 11/30/17 09:55 Pulse Rate 71 11/30/17 09:55 Respiratory Rate 18 11/30/17 09:55 Blood Pressure 119/52 11/30/17 09:55 O2 Sat by Pulse Oximetry (%) Laboratory Tests 11/28/17 11/29/17 11/29/17 23:20 07:30 07:30 WBC 5.9 RBC 4.39 Hgb 13.6 Hct 38.4 MCV 87.5 MCH 31.1 MCHC 35.5 RDW 13.4 Plt Count 176 MPV 9.9 Sodium 141 Potassium 3.9 Chloride 105 Carbon Dioxide 29 Anion Gap 7 L BUN 10 Creatinine 0.7 Creat Clearance w eGFR > 60 Random Glucose 78 Calcium 8.8 Total Bilirubin 0.9 AST 16 D ALT 19 Alkaline Phosphatase 63 Total Protein 6.9 Albumin 3.6 Urine Color Yellow Urine Appearance Clear Urine pH 8.0 Ur Specific [place] 1.021 Urine Protein Negative Urine Glucose (UA) Negative Urine Ketones Negative Urine Blood Negative Urine Nitrite Negative Urine Bilirubin Negative Urine Urobilinogen 4.0 e.u/dl Ur Leukocyte Esterase Negative RPR Titer 11/29/17 07:30 WBC RBC Hgb Hct MCV MCH MCHC RDW Plt Count MPV Sodium Potassium Chloride Carbon Dioxide Anion Gap BUN Creatinine Creat Clearance w eGFR Random Glucose Calcium Total Bilirubin AST ALT Alkaline Phosphatase Total Protein Albumin Urine Color Urine Appearance Urine pH Ur Specific [place] Urine Protein Urine Glucose (UA) Urine Ketones Urine Blood Urine Nitrite Urine Bilirubin Urine Urobilinogen Ur Leukocyte Esterase RPR Titer Nonreactive pt aox3 in nad ambulating Assessment: 11/30/17 11:44 withdrawal sx's Plan: cont. detox increase fluids
[2017-11-30] MEDS: THIAMINE HCL 100 MG TABLET (FP) PO SCH (22:22)
[2017-11-30] MEDS: ZOLPIDEM TARTRATE 10 MG TABLET (PARK CARE ONLY) PO PRN (22:24)
[2017-12-01] MEDS: diazePAM 5 MG TABLET PO PRN ×3 (03:36→15:04)
[2017-12-01] MEDS ORDERED: METHADONE HCL 5 MG TABLET (FOR DETOX USE ONLY) PO ONE (10:00)
[2017-12-01] MEDS: PRENATAL VITAMINS W/ FOLIC ACID TABLET (FP) PO SCH (10:21)
[2017-12-01] MEDS: NICOTINE 14 MG/24 HOURS TOPICAL PATCH TD SCH (10:22)
[2017-12-01] MEDS: NICOTINE POLACRILEX 2 MG GUM BC PRN (10:24)
--- NOTE | 2017-12-01 13:16 | PN ---
BHS Progress Note (SOAP) Subjective: pt c/o difficulty sleeping at night, was given ambien and melatonin- says that neither works for him, was using marijuana at home for sleeping Obj: Vital Signs - 24 hr 11/30/17 11/30/17 12/01/17 13:12 22:42 06:47 Temperature 97.6 F 97.5 F L 96.1 F L Pulse Rate 77 80 59 L Respiratory 18 18 18 Rate Blood Pressure 107/59 115/84 137/77 12/01/17 09:30 Temperature 97.2 F L Pulse Rate 77 Respiratory 18 Rate Blood Pressure 117/75 Laboratory Tests 11/28/17 11/29/17 11/29/17 23:20 07:30 07:30 WBC 5.9 RBC 4.39 Hgb 13.6 Hct 38.4 MCV 87.5 MCH 31.1 MCHC 35.5 RDW 13.4 Plt Count 176 MPV 9.9 Sodium 141 Potassium 3.9 Chloride 105 Carbon Dioxide 29 Anion Gap 7 L BUN 10 Creatinine 0.7 Creat Clearance w eGFR > 60 Random Glucose 78 Calcium 8.8 Total Bilirubin 0.9 AST 16 D ALT 19 Alkaline Phosphatase 63 Total Protein 6.9 Albumin 3.6 Urine Color Yellow Urine Appearance Clear Urine pH 8.0 Ur Specific [place] 1.021 Urine Protein Negative Urine Glucose (UA) Negative Urine Ketones Negative Urine Blood Negative Urine Nitrite Negative Urine Bilirubin Negative Urine Urobilinogen 4.0 e.u/dl Ur Leukocyte Esterase Negative RPR Titer 11/29/17 07:30 WBC RBC Hgb Hct MCV MCH MCHC RDW Plt Count MPV Sodium Potassium Chloride Carbon Dioxide Anion Gap BUN Creatinine Creat Clearance w eGFR Random Glucose Calcium Total Bilirubin AST ALT Alkaline Phosphatase Total Protein Albumin Urine Color Urine Appearance Urine pH Ur Specific [place] Urine Protein Urine Glucose (UA) Urine Ketones Urine Blood Urine Nitrite Urine Bilirubin Urine Urobilinogen Ur Leukocyte Esterase RPR Titer Nonreactive pt walking around, doing well labs WNL VS good A/P: continue detox protocol from opioids: pt doing well
[2017-12-01] MEDS ORDERED: diphenhydrAMINE HCL 50 MG CAPSULE PO PRN (13:17)
[2017-12-01] MEDS: ZOLPIDEM TARTRATE 10 MG TABLET (PARK CARE ONLY) PO PRN (22:10)
[2017-12-01] MEDS: THIAMINE HCL 100 MG TABLET (FP) PO SCH (22:10)
[2017-12-02] MEDS ORDERED: diphenhydrAMINE HCL 25 MG CAPSULE (FP) PO ONE (00:02)
[2017-12-02] MEDS ORDERED: METHADONE HCL 10 MG TABLET (FOR DETOX USE ONLY) PO ONE (10:00)
--- NOTE | 2017-12-02 10:19 | PN ---
BHS Progress Note (SOAP) Subjective: interrupted sleep,trouble sleeping , irritable Objective: 12/02/17 10:20 Vital Signs Temperature 97.7 F 12/02/17 07:21 Pulse Rate 57 L 12/02/17 07:21 Respiratory Rate 19 12/02/17 07:21 Blood Pressure 112/77 12/02/17 07:21 O2 Sat by Pulse Oximetry (%) Laboratory Tests 11/28/17 11/29/17 11/29/17 23:20 07:30 07:30 WBC 5.9 RBC 4.39 Hgb 13.6 Hct 38.4 MCV 87.5 MCH 31.1 MCHC 35.5 RDW 13.4 Plt Count 176 MPV 9.9 Sodium 141 Potassium 3.9 Chloride 105 Carbon Dioxide 29 Anion Gap 7 L BUN 10 Creatinine 0.7 Creat Clearance w eGFR > 60 Random Glucose 78 Calcium 8.8 Total Bilirubin 0.9 AST 16 D ALT 19 Alkaline Phosphatase 63 Total Protein 6.9 Albumin 3.6 Urine Color Yellow Urine Appearance Clear Urine pH 8.0 Ur Specific [place] 1.021 Urine Protein Negative Urine Glucose (UA) Negative Urine Ketones Negative Urine Blood Negative Urine Nitrite Negative Urine Bilirubin Negative Urine Urobilinogen 4.0 e.u/dl Ur Leukocyte Esterase Negative RPR Titer 11/29/17 07:30 WBC RBC Hgb Hct MCV MCH MCHC RDW Plt Count MPV Sodium Potassium Chloride Carbon Dioxide Anion Gap BUN Creatinine Creat Clearance w eGFR Random Glucose Calcium Total Bilirubin AST ALT Alkaline Phosphatase Total Protein Albumin Urine Color Urine Appearance Urine pH Ur Specific [place] Urine Protein Urine Glucose (UA) Urine Ketones Urine Blood Urine Nitrite Urine Bilirubin Urine Urobilinogen Ur Leukocyte Esterase RPR Titer Nonreactive pt aox3 in nad ambulating Assessment: 12/02/17 10:20 withdrawal symptoms insomnia Plan: cont. detox increase fluids d/c in am
[2017-12-02 11:13] VITALS: BP 118/76; PULSE 80; TEMP 97.9
[2017-12-02] MEDS: PRENATAL VITAMINS W/ FOLIC ACID TABLET (FP) PO SCH (11:26)
[2017-12-02] MEDS: NICOTINE 14 MG/24 HOURS TOPICAL PATCH TD SCH (11:26)
--- NOTE | 2017-12-02 12:13 | DS ---
[facility] Detox Discharge Summary Admission Date: 11/28/17 Discharge Date: 12/02/17 - History Present History: Cannabis Dependence, Opioid Dependence - Physical Exam Results Vital Signs: Vital Signs Temperature 97.9 F 12/02/17 11:12 Pulse Rate 80 12/02/17 11:12 Respiratory Rate 18 12/02/17 11:12 Blood Pressure 118/76 12/02/17 11:12 O2 Sat by Pulse Oximetry (%) - Treatment Hospital Course: Detox Protocol Followed, Detoxed Safely, Responded well, Discharged Condition Good, Rehab Referral Accepted Patient has Accepted a Rehab Referral to: [facility] - Medication Discharge Medications: Ambulatory Orders NK [No Known Home Medication] 05/10/17 - Diagnosis (1) Cannabis abuse Current Visit: Yes Status: Chronic (2) Nicotine dependence Current Visit: Yes Status: Chronic Qualifiers: Nicotine product type: cigarettes Substance use status: in withdrawal Qualified Code(s): F17.213 - Nicotine dependence, cigarettes, with withdrawal (3) Opioid dependence with withdrawal Current Visit: Yes Status: Chronic (4) Depression (emotion) Current Visit: No Status: Chronic Qualifiers: Depression Type: dysthymia Qualified Code(s): F34.1 - Dysthymic disorder - AMA Did Patient Leave Against Medical Advice: No (Rehab bed was made available and pt wants to obtain placement. )
[2017-12-03] MEDS ORDERED: METHADONE HCL 5 MG TABLET (FOR DETOX USE ONLY) PO ONE (06:00)
== END 2017-12-02 14:27 | disposition other institution (70) | DRG 773 ==
LOC: YASAS 11:45 → Y6N 13:57
PROVIDERS: ADMIT Surgery; ATTEND Surgery
PROC: HZ2ZZZZ Detoxification Services for Substance Abuse Treatment (ICD-10-PCS; principal; 2017-11-28)
DX: F11.23 Opioid dependence with withdrawal (principal); F12.20 Cannabis dependence, uncomplicated; F17.210 Nicotine dependence, cigarettes, uncomplicated; F34.1 Dysthymic disorder; G47.00 Insomnia, unspecified; I49.9 Cardiac arrhythmia, unspecified; Z87.898 Personal history of other specified conditions
CPT/HCPCS: 36415; 80053; 81003; 85027; 86593; 93005; 93010

== ENCOUNTER 2018-06-02 11:24 | Inpatient (IN) | payer OTHER ==
[2018-06-02 11:44] VITALS: BMI 23.7
--- NOTE | 2018-06-02 14:01 | HP ---
COWS - Scale Resting Pulse: 0= [place] 80 or Below Sweatin= Chills/Flushing Restless Observation: 3= Extraneous Movement Pupil Size: 1= Pupils >than Normal Bone or Joint Aches: 2= Severe Diffuse Aches Runny Nose/ Eye Tearin= Runny Nose/Eyes GI Upset > 30mins: 3= Vomiting/Diarrhea Tremor Observation: 2= Slight Tremor Visible Yawning Observation: 1= 1-2x During Session Anxiety or Irritability: 2=Irritable/Anxious Goose Flesh Skin: 0=Smooth Skin COWS Score: 17 CIWA Score - Admission Criteria OASAS Guidelines: Admission for Medically Managed Detox: Requires at least one of the followin. CIWA greater than 12 2. Seizures within the past 24 hours 3. Delirium tremens within the past 24 hours 4. Hallucinations within the past 24 hours 5. Acute intervention needed for co occurring medical disorder 6. Acute intervention needed for co occurring psychiatric disorder 7. Severe withdrawal that cannot be handled at a lower level of care (continued vomiting, continued diarrhea, abnormal vital signs) requiring intravenous medication and/or fluids 8. Admission ROS S - HPI Chief Complaint: i need help to stop using heroin Allergies/Adverse Reactions: Allergies Allergy/AdvReac Type Severity Reaction Status Date / Time No Known Allergies Allergy Verified 06/02/18 13:52 History of Present Illness: this 38 years old male with heroin dependence,seeking detox,withdrawal symptom, multiple admissions in detox,but keep relapsing,last detox [facility] 11/28/17 to nicotine dependence weight loss no significant period of sobriety plan to go to rehab after detox Exam Limitations: No Limitations - Ebola screening Have you traveled outside of the country in the last 21 days: No Have you had contact with anyone from an Ebola affected area: No Have you been sick,other than usual withdrawal symptoms: No Do you have a fever: No - Review of Systems Constitutional: Chills, Loss of Appetite, Malaise, Night Sweats, Changes in sleep, Weakness, Unintentional Wgt. Loss EENT: reports: Tearing, Nose Congestion Respiratory: reports: No Symptoms reported Cardiac: reports: No Symptoms Reported GI: reports: Diarrhea, Nausea, Vomiting, Abdominal cramping : reports: No Symptoms Reported Musculoskeletal: reports: Back Pain, Muscle Pain Integumentary: reports: Dryness Neuro: reports: Headache, Tremors Endocrine: reports: No Symptoms Reported Hematology: reports: No Symptoms Reported Psychiatric: reports: No Sypmtoms Reported, Judgement Intact, Mood/Affect Appropiate, Orientated x3, other Other Systems: Reviewed and Negative Patient History - Patient Medical History Hx Anemia: No Hx Asthma: No Hx Chronic Obstructive Pulmonary Disease (COPD): No Hx Cancer: No Hx Cardiac Disorders: No Hx Congestive Heart Failure: No Hx Hypertension: No Hx Hypercholesterolemia: No Hx Pacemaker: No HX Cerebrovascular Accident: No Hx Seizures: No Hx Dementia: No Hx Diabetes: No Hx Gastrointestinal Disorders: No Hx Liver Disease: No Hx Genitourinary Disorders: No Hx Sexually Transmitted Disorders: No Hx Renal Disease (ESRD): No Hx Thyroid Disease: No Hx Human Immunodeficiency Virus (HIV): No (Negative hx 2017) Hx Hepatitis C: No Hx Depression: No Hx Suicide Attempt: No (DENIES S/I) Hx Bipolar Disorder: No Hx Schizophrenia: No Other Medical History: no suicidal,no homicidal - Patient Surgical History Past Surgical History: No Hx Neurologic Surgery: No Hx Cataract Extraction: No Hx Cardiac Surgery: No Hx Lung Surgery: No Hx Breast Surgery: No Hx Breast Biopsy: No Hx Abdominal Surgery: No Hx Appendectomy: No Hx Cholecystectomy: No Hx Genitourinary Surgery: No Hx Section: No Hx Orthopedic Surgery: No Anesthesia Reaction: No - PPD History Previous Implant?: Yes Documented Results: Negative w/o proof Implanted On Prior [facility] Admission?: Yes Date: 05/12/17 Results: 0 mm PPD to be Administered?: Yes - Smoking Cessation Smoking history: Current every day smoker Have you smoked in the past 12 months: Yes Aproximately how many cigarettes per day: 6 Cigars Per Day: 0 Hx Chewing Tobacco Use: No Initiated information on smoking cessation: Yes 'Breaking Loose' booklet given: 06/02/18 - Substance & Tx. History Hx Alcohol Use: No Hx Substance Use: Yes Substance Use Type: Heroin, Marijuana Hx Substance Use Treatment: Yes ([facility] 11/28/17 to 12/06/17) - Substances Abused Heroin Route: Inhalation Frequency: Daily Amount used: 4 BAGS Age of first use: 36 Date of Last Use: 06/01/18 Marijuana/Hashish Route: Smoking Frequency: Daily Amount used: 1-2 BLUNTS Age of first use: 28 Date of Last Use: 06/02/18 Family Disease History - Family Disease History Family Disease History: [place]: Father (), Other: Father Admission Physical Exam [facility] - Vital Signs Vital Signs: Vital Signs - 24 hr 06/02/18 11:42 Temperature 97.2 F L Pulse Rate 77 Respiratory 18 Rate Blood Pressure 113/75 - Physical General Appearance: Yes: Moderate Distress, Tremorous, Irritable, Sweating, Anxious HEENTM: Yes: Normal ENT Inspection, BAR, Pharynx Normal Respiratory: Yes: Lungs Clear, Normal Breath Sounds, No Respiratory Distress Neck: Yes: Within Normal Limits, Supple, Trachea in good position Breast: Yes: Within Normal Limits Cardiology: Yes: Within Normal Limits, Regular Rhythm, Regular Rate, S1, S2 Abdominal: Yes: Within Normal Limits, Normal Bowel Sounds, Non Tender, Soft Genitourinary: Yes: Within Normal Limits Back: Yes: Muscle Spasm Musculoskeletal: Yes: full range of Motion, Back pain, Joint Stiffness, Muscle Pain Extremities: Yes: Tremors Neurological: Yes: Within Normal Limits, biomedical equipment specialist II-XII NML intact, Fully Oriented, Alert Integumentary: Yes: Dry Lymphatic: Yes: Within Normal Limits - Diagnostic (1) Opioid dependence with withdrawal Current Visit: No Status: Chronic (2) Cannabis dependence, uncomplicated Current Visit: No Status: Acute (3) Weight loss Current Visit: No Status: Acute (4) Nicotine dependence Current Visit: No Status: Chronic Qualifiers: Nicotine product type: cigarettes Substance use status: in withdrawal Qualified Code(s): F17.213 - Nicotine dependence, cigarettes, with withdrawal Cleared for Admission [facility] - Detox or Rehab [facility] Level of Care: Medically Managed Detox Regimen/Protocol: Methadone [facility] Breath Alcohol Content Breath Alcohol Content: 0 Urine Drug Screen - Results Drug Screen Negative: No Urine Drug Screen Results: THC-Marijuana, OPI-Opiates, FEN-Fentanyl Inpatient Rehab Admission - Rehab Decision to Admit Inpatient rehab admission?: No
[2018-06-02] MEDS ORDERED: MAGNESIUM CITRATE 300 ML BOTTLE PO PRN (14:08)
[2018-06-02] MEDS ORDERED: IBUPROFEN 400 MG TABLET (FP) PO PRN (14:08)
[2018-06-02] MEDS ORDERED: MAGNESIUM HYDROX 2400MG/30ML ORAL SUSPENSION 30 ML CUP PO PRN (14:08)
[2018-06-02] MEDS ORDERED: MAG HYDROX/AL HYDROX/SIMETH 30 ML UNIT-DOSE CUP PO PRN (14:08)
[2018-06-02] MEDS ORDERED: MENTHOL/PHENOL 1 EACH UD MM PRN (14:08)
[2018-06-02] MEDS ORDERED: ACETAMINOPHEN 325 MG TABLET (FP) PO PRN (14:08)
[2018-06-02] MEDS ORDERED: LOPERAMIDE HCL 2 MG CAPSULE PO PRN (14:08)
[2018-06-02] MEDS ORDERED: P-EPHED 60MG/TRIPROLIDI 2.5MG TABLET PO PRN (14:08)
[2018-06-02] MEDS ORDERED: guaiFENesin/D-METHORPHAN HB 10 ML UNIT-DOSE CUPS PO PRN (14:08)
[2018-06-02] MEDS ORDERED: METHADONE HCL 10 MG TABLET (FOR DETOX USE ONLY) PO ONE ×2 (15:00→23:00)
[2018-06-02] MEDS: diazePAM 5 MG TABLET PO PRN ×2 (15:33→19:45)
[2018-06-02] MEDS: NICOTINE POLACRILEX 2 MG GUM BC PRN (19:46)
[2018-06-02] MEDS: THIAMINE HCL 100 MG TABLET (FP) PO SCH (22:26)
[2018-06-02] MEDS: MELATONIN 5 MG TABLETS PO PRN (22:27)
[2018-06-03] MEDS: diazePAM 5 MG TABLET PO PRN ×5 (00:51→23:14)
[2018-06-03] MEDS ORDERED: METHADONE HCL 10 MG TABLET (FOR DETOX USE ONLY) PO ONE (10:00)
[2018-06-03] MEDS: PRENATAL VITAMINS W/ FOLIC ACID TABLET (FP) PO SCH (10:23)
[2018-06-03 10:35] LABS: HEMOGLOBIN 15.4 GM/dL (11.7-16.9); MCH 31.2 pg (25.7-33.7); MEAN CELL VOLUME 89.2 fl (80-96); MEAN PLT VOLUME 9.8 fl (7.5-11.1); PLATELET COUNT 227 K/MM3 (134-434); RBC 4.93 M/mm3 (4.00-5.60); RDW 13.5 % (11.9-15.9); WHITE BLOOD COUNT 6.8 K/mm3 (4.0-10.0)
[2018-06-03] MEDS: NICOTINE POLACRILEX 2 MG GUM BC PRN (10:42)
[2018-06-03 10:44] LABS: ALK PHOS 79 U/L (45-117); ANION GAP 7 MMOL/L (8-16); BLOOD UREA NITROGEN 15 mg/dL (7-18); CALCIUM 9.3 mg/dL (8.5-10.1); CHLORIDE 104 mmol/L (98-107); CO2 24 mmol/L (21-32); GLUCOSE,RANDOM 105 mg/dL (74-106); POTASSIUM 4.1 mmol/L (3.5-5.1); SGOT/AST 26 U/L (15-37); SGPT/ALT 29 U/L (13-61); SODIUM 135 mmol/L (136-145)
--- NOTE | 2018-06-03 14:24 | PN ---
S CIWA - CIWA Score Nausea/Vomitin-No Nausea/No Vomiting Muscle Tremors: 4-Moderate,w/Arms Extend Anxiety: 4-Mod. Anxious/Guarded Agitation: 4-Moderately Restless Paroxysmal Sweats: 1-Minimal Palms Moist Orientation: 0-Oriented Tacttile Disturbances: 0-None Auditory Disturbances: 0-None Visual Disturbances: 0-None Headache: 0-None Present CIWA-Ar Total Score: 13 [facility]HS COWS - Scale Resting Pulse: 0= CT 80 or Below Sweatin= Chills/Flushing Restless Observation: 0= Sits Still Pupil Size: 0= Normal to Room Light Bone or Joint Aches: 4=Acute Joint/Muscle Pain Runny Nose/ Eye Tearin= None GI Upset > 30mins: 0= None Tremor Observation of Outstretched Hands: 1= Tremor [place], Not Seen Yawning Observation: 1= 1-2x During Session Anxiety or Irritability: 2=Irritable/Anxious Goose Flesh Skin: 0=Smooth Skin COWS Score: 9 S Progress Note (SOAP) Subjective: ANXIETY, SWEATS, INTERMITTENT SLEEP. PT REQUESTING INSOMNIA WORK UP. Objective: 06/03/18 14:23 Vital Signs 06/03/18 06/03/18 06:30 10:05 Temperature 97.0 F L Pulse Rate 72 Respiratory 18 18 Rate Blood Pressure 136/85 Laboratory Tests 06/03/18 06/03/18 06/03/18 05:35 05:35 05:35 WBC 6.8 RBC 4.93 Hgb 15.4 Hct 44.0 MCV 89.2 MCH 31.2 MCHC 35.0 RDW 13.5 Plt Count 227 D MPV 9.8 Sodium 135 L Potassium 4.1 Chloride 104 Carbon Dioxide 24 Anion Gap 7 L BUN 15 Creatinine 1.0 Creat Clearance w eGFR > 60 Random Glucose 105 Calcium 9.3 Total Bilirubin 1.0 AST 26 ALT 29 Alkaline Phosphatase 79 Total Protein 8.0 Albumin 4.0 RPR Titer Nonreactive Assessment: 06/03/18 14:23 WITHDRAWAL SX Plan: CONTINUE DETOX PSYCH F/U TODAY RE:INSOMNIA
[2018-06-03] MEDS ORDERED: COLLOIDAL OATMEAL 1 BAR EACH TP PRN (17:32)
[2018-06-03] MEDS: THIAMINE HCL 100 MG TABLET (FP) PO SCH (22:25)
[2018-06-03] MEDS: MELATONIN 5 MG TABLETS PO PRN (22:25)
[2018-06-04] MEDS: diazePAM 5 MG TABLET PO PRN ×5 (05:10→22:40)
[2018-06-04] MEDS: CYCLOBENZAPRINE HCL 10 MG TABLET (FP) PO PRN (05:10)
[2018-06-04] MEDS: PRENATAL VITAMINS W/ FOLIC ACID TABLET (FP) PO SCH (09:46)
[2018-06-04] MEDS ORDERED: METHADONE HCL 5 MG TABLET (FOR DETOX USE ONLY) PO ONE (10:00)
--- NOTE | 2018-06-04 10:56 | CONSULT ---
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 to relapse of his substance use disorder. He is admitted to the unit for Heroin use and Marijuana dependence. He sniff heroin daily. His most recent Detox treatment was last summer. Refer to addiction counselor note and hisprevious records for a detailed history of his substance use disorder Medical History: Patient is physically healthy. He denies past acute medical or surgical illnesses Psychiatric History: Denies psychiatric history. He feels depresed and anxious and alleviate his anxiety by using heroin. He admitted episodic anger inattention, distractibility, poor attention and concentration, his mind wanders and lack self-control. Occasional road rage while driving Physical/Sexual Abuse/Trauma History: Denies history of abuse Additional Comment: R/o Adult ADHD Mental Status Exam - Mental Status Exam Alert and Oriented to: Place, Person Cognitive Function: Good Patient Appearance: Well Groomed Mood: Sad, Nervous Affect: Mood Congruent Patient Behavior: Distractible, Talkative, Cooperative, Agitated Speech Pattern: Appropriate Voice Loudness: Mildly Loud Thought Process: Intact Thought Disorder: Not Present Hallucinations: Denies Suicidal Ideation: Denies Homicidal Ideation: Denies Insight/Judgement: Poor Sleep: Difficulty falling asleep Appetite: Fair Muscle strength/Tone: Normal Gait/Station: Normal Psychiatric Findings - Problem List ([place] 1, 2,3) (1) Cannabis dependence, uncomplicated Current Visit: No Status: Acute (2) Insomnia Current Visit: No Status: Acute (3) Nicotine dependence Current Visit: No Status: Chronic Qualifiers: Nicotine product type: cigarettes Substance use status: in withdrawal Qualified Code(s): F17.213 - Nicotine dependence, cigarettes, with withdrawal (4) Opioid dependence with withdrawal Current Visit: No Status: Chronic - Initial Treatment Plan Initial Treatment Plan: Continue [facility] treatment. Psychoeducation. Serquel 50 mg po q hs prn. Monitor response
[2018-06-04] MEDS: NICOTINE POLACRILEX 2 MG GUM BC PRN ×2 (14:15→18:47)
--- NOTE | 2018-06-04 16:56 | PN ---
BHS COWS - Scale Resting Pulse: 1= CT 81-100 Sweatin= Chills/Flushing Restless Observation: 3= Extraneous Movement Pupil Size: 0= Normal to Room Light Bone or Joint Aches: 2= Severe Diffuse Aches Runny Nose/ Eye Tearin= None GI Upset > 30mins: 2= Nausea/Diarrhea Tremor Observation of Outstretched Hands: 2= Slight Tremor Visible Yawning Observation: 0= None Anxiety or Irritability: 2=Irritable/Anxious Goose Flesh Skin: 0=Smooth Skin COWS Score: 13 BHS Progress Note (SOAP) Subjective: Sweating, interrupted sleep Objective: 06/04/18 16:54 Last Vital Signs Temp Pulse Resp BP Pulse Ox 97.3 F L 92 H 18 116/70 06/04/18 13:31 06/04/18 13:31 06/04/18 13:31 06/04/18 13:31 Laboratory Tests 06/03/18 06/03/18 06/03/18 05:35 05:35 05:35 WBC 6.8 RBC 4.93 Hgb 15.4 Hct 44.0 MCV 89.2 MCH 31.2 MCHC 35.0 RDW 13.5 Plt Count 227 D MPV 9.8 Sodium 135 L Potassium 4.1 Chloride 104 Carbon Dioxide 24 Anion Gap 7 L BUN 15 Creatinine 1.0 Creat Clearance w eGFR > 60 Random Glucose 105 Calcium 9.3 Total Bilirubin 1.0 AST 26 ALT 29 Alkaline Phosphatase 79 Total Protein 8.0 Albumin 4.0 RPR Titer Nonreactive Labs reviewed Assessment: 06/04/18 16:55 Withdrawal symptoms Plan: Continue detox Encouraged PO water hydration
[2018-06-04] MEDS: THIAMINE HCL 100 MG TABLET (FP) PO SCH (22:39)
[2018-06-04] MEDS: QUEtiapine FUMARATE 50 MG TABLET PO SCH (22:39)
[2018-06-05] MEDS ORDERED: METHADONE HCL 5 MG TABLET (FOR DETOX USE ONLY) PO ONE (10:00)
--- NOTE | 2018-06-05 10:12 | PN ---
BHS Progress Note (SOAP) Subjective: interrupted sleep agitation sweats Objective: 06/05/18 10:12 Vital Signs Temperature 98.1 F 06/05/18 09:16 Pulse Rate 74 06/05/18 09:16 Respiratory Rate 16 06/05/18 09:16 Blood Pressure 106/63 06/05/18 09:16 O2 Sat by Pulse Oximetry (%) aaox3 ambulating no acute distress Assessment: 06/05/18 10:12 withdrawal sx Plan: continue detox increase fluids
[2018-06-05] MEDS: PRENATAL VITAMINS W/ FOLIC ACID TABLET (FP) PO SCH (10:16)
[2018-06-05] MEDS: diazePAM 5 MG TABLET PO PRN (10:17)
[2018-06-05] MEDS: NICOTINE POLACRILEX 2 MG GUM BC PRN (14:19)
[2018-06-05] MEDS: CYCLOBENZAPRINE HCL 10 MG TABLET (FP) PO PRN (14:21)
[2018-06-05] MEDS: hydrOXYzine PAMOATE 25 MG CAPSULE (FP) PO PRN ×2 (16:58→22:16)
[2018-06-05] MEDS: QUEtiapine FUMARATE 50 MG TABLET PO SCH (22:15)
[2018-06-05] MEDS: MELATONIN 5 MG TABLETS PO PRN (22:15)
[2018-06-05] MEDS: THIAMINE HCL 100 MG TABLET (FP) PO SCH (22:15)
--- NOTE | 2018-06-06 09:37 | PN ---
BHS Progress Note (SOAP) Subjective: sweats restless Objective: 06/06/18 09:37 Vital Signs Temperature 97.5 F L 06/06/18 07:21 Pulse Rate 63 06/06/18 07:21 Respiratory Rate 16 06/06/18 07:21 Blood Pressure 97/66 06/06/18 07:21 O2 Sat by Pulse Oximetry (%) aaox3 ambulating no acute distress Assessment: 06/06/18 09:37 mild withdrawal sx Plan: continue detox increase fluids d/c in am
[2018-06-06] MEDS ORDERED: METHADONE HCL 10 MG TABLET (FOR DETOX USE ONLY) PO ONE (10:00)
[2018-06-06] MEDS: PRENATAL VITAMINS W/ FOLIC ACID TABLET (FP) PO SCH (10:49)
[2018-06-06] MEDS: hydrOXYzine PAMOATE 25 MG CAPSULE (FP) PO PRN ×3 (10:50→19:19)
[2018-06-06] MEDS: NICOTINE POLACRILEX 2 MG GUM BC PRN ×3 (12:36→19:19)
[2018-06-06] MEDS: QUEtiapine FUMARATE 50 MG TABLET PO SCH (22:07)
[2018-06-06] MEDS: THIAMINE HCL 100 MG TABLET (FP) PO SCH (22:07)
[2018-06-07] MEDS: hydrOXYzine PAMOATE 25 MG CAPSULE (FP) PO PRN ×2 (05:23→09:29)
[2018-06-07] MEDS ORDERED: METHADONE HCL 5 MG TABLET (FOR DETOX USE ONLY) PO ONE (06:00)
--- NOTE | 2018-06-07 09:12 | DS ---
[facility] Detox Discharge Summary Admission Date: 06/02/18 Discharge Date: 06/07/18 - History Present History: Cannabis Dependence, Opioid Dependence - Physical Exam Results Vital Signs: Vital Signs Temperature 97.7 F 06/07/18 07:39 Pulse Rate 74 06/07/18 07:39 Respiratory Rate 18 06/07/18 07:39 Blood Pressure 118/60 06/07/18 07:39 O2 Sat by Pulse Oximetry (%) - Treatment Hospital Course: Detox Protocol Followed, Detoxed Safely, Responded well, Discharged Condition Good, Rehab Referral Accepted - Medication Discharge Medications: Ambulatory Orders NK [No Known Home Medication] 05/10/17 - Diagnosis (1) Cannabis dependence, uncomplicated Current Visit: Yes Status: Chronic (2) Insomnia Current Visit: No Status: Acute (3) Weight loss Current Visit: No Status: Acute (4) Depression (emotion) Current Visit: No Status: Chronic Qualifiers: Depression Type: dysthymia Qualified Code(s): F34.1 - Dysthymic disorder (5) Nicotine dependence Current Visit: Yes Status: Chronic Qualifiers: Nicotine product type: cigarettes Substance use status: uncomplicated Qualified Code(s): F17.210 - Nicotine dependence, cigarettes, uncomplicated (6) Opioid dependence with withdrawal Current Visit: Yes Status: Chronic - AMA Did Patient Leave Against Medical Advice: No [facility])
[2018-06-07] MEDS ORDERED: cloNIDine HCL 0.1 MG TABLET PO ONE (09:14)
[2018-06-07 09:26] VITALS: BP 107/53; PULSE 125; TEMP 97
[2018-06-07] MEDS: PRENATAL VITAMINS W/ FOLIC ACID TABLET (FP) PO SCH (09:29)
== END 2018-06-07 10:43 | disposition home or self-care (01) | DRG 773 ==
LOC: YASAS 11:24 → Y6N 14:30
PROVIDERS: ADMIT Surgery; ATTEND Surgery
PROC: HZ2ZZZZ Detoxification Services for Substance Abuse Treatment (ICD-10-PCS; principal; 2018-06-02)
DX: F11.23 Opioid dependence with withdrawal (principal); F12.20 Cannabis dependence, uncomplicated; F17.210 Nicotine dependence, cigarettes, uncomplicated; F34.1 Dysthymic disorder; G47.00 Insomnia, unspecified; R63.4 Abnormal weight loss; Z68.23 Body mass index [BMI] 23.0-23.9, adult
CPT/HCPCS: 36415; 80053; 85027; 86593

== ENCOUNTER 2020-07-04 16:42 | Inpatient (IN) | payer OTHER ==
[2020-07-04 17:06] VITALS: BMI 26.6
[2020-07-04] MEDS ORDERED: cloNIDine HCL 0.1 MG TABLET PO PRN (19:37)
[2020-07-04] MEDS ORDERED: MAGNESIUM HYDROX 2400MG/30ML ORAL SUSPENSION 30 ML CUP PO PRN (19:37)
[2020-07-04] MEDS ORDERED: MAG HYDROX/AL HYDROX/SIMETH 30 ML UNIT-DOSE CUP PO PRN (19:37)
[2020-07-04] MEDS ORDERED: ACETAMINOPHEN 325 MG TABLET (FP) PO PRN ×2 (19:37)
[2020-07-04] MEDS ORDERED: BISMUTH SUBSALICYLATE 524 MG/30 ML UD PO PRN (19:37)
[2020-07-04] MEDS ORDERED: ONDANSETRON *ODT* 4 MG TABLET SL PRN (19:37)
[2020-07-04] MEDS ORDERED: IBUPROFEN 400 MG TABLET (FP) PO PRN (19:37)
[2020-07-04] MEDS ORDERED: METHOCARBAMOL 500 MG TABLET PO PRN (19:37)
[2020-07-04] MEDS ORDERED: NICOTINE POLACRILEX 2 MG GUM BUC PRN (19:37)
[2020-07-04] MEDS ORDERED: METHADONE HCL 10 MG TABLET (FOR DETOX USE ONLY) PO ONE (19:37)
[2020-07-04] MEDS ORDERED: MAGNESIUM CITRATE 300 ML BOTTLE PO PRN (19:37)
[2020-07-04] MEDS ORDERED: MENTHOL/PHENOL 1 EACH UD MM PRN (19:37)
[2020-07-04] MEDS: hydrOXYzine PAMOATE 25 MG CAPSULE (FP) PO PRN (23:07)
[2020-07-04] MEDS: MELATONIN 5 MG TABLETS PO PRN (23:07)
[2020-07-04] MEDS: THIAMINE HCL 100 MG TABLET (FP) PO SCH (23:08)
[2020-07-05] MEDS: hydrOXYzine PAMOATE 25 MG CAPSULE (FP) PO PRN (06:06)
[2020-07-05] MEDS ORDERED: METHADONE HCL 5 MG TABLET (FOR DETOX USE ONLY) ONE (09:23)
[2020-07-05] MEDS ORDERED: METHADONE HCL 10 MG TABLET (FOR DETOX USE ONLY) ONE (09:24)
[2020-07-05 10:00] LABS: HEMATOCRIT 39.8 % (35.4-49); HEMOGLOBIN 13.9 GM/dL (11.7-16.9); MCH 29.9 pg (25.7-33.7); MCHC 34.9 g/dl (32.0-35.9); MEAN CELL VOLUME 85.9 fl (80-96); MEAN PLT VOLUME 8.9 fl (7.5-11.1); PLATELET COUNT 219 K/MM3 (134-434); RBC 4.64 M/mm3 (4.00-5.60); RDW 13.2 % (11.9-15.9); WHITE BLOOD COUNT 5.6 K/mm3 (4.0-10.0)
[2020-07-05] MEDS ORDERED: METHADONE (DETOX) 20 MG, METHADONE (DETOX) 5 MG PO ONE (10:00)
[2020-07-05] MEDS: PRENATAL VITAMINS W/ FOLIC ACID TABLET (FP) PO SCH (10:19)
[2020-07-05] MEDS: NICOTINE 7 MG/24 HOURS TOPICAL PATCH TD SCH (10:19)
[2020-07-05 12:05] LABS: POTASSIUM 3.5 mmol/L (3.5-5.1)
[2020-07-05 12:23] LABS: ALBUMIN 3.7 g/dl (3.4-5.0)
[2020-07-05 12:26] LABS: CALCIUM 9.1 mg/dL (8.5-10.1)
[2020-07-05 12:27] LABS: BLOOD UREA NITROGEN 19.6 mg/dL (7-18)
[2020-07-05 12:29] LABS: TOT PROT 7.5 g/dl (6.4-8.2)
[2020-07-05 12:30] LABS: CREATININE 0.8 mg/dL (0.55-1.3)
[2020-07-05] MEDS: busPIRone HCL 5 MG TABLET PO SCH ×2 (13:24→22:26)
[2020-07-05] MEDS: SUVOREXANT 10 MG TABLET PO PRN (22:26)
[2020-07-05] MEDS: THIAMINE HCL 100 MG TABLET (FP) PO SCH (22:26)
[2020-07-05] MEDS: MELATONIN 5 MG TABLETS PO PRN (22:26)
[2020-07-06] MEDS: busPIRone HCL 5 MG TABLET PO SCH ×3 (07:02→22:37)
[2020-07-06] MEDS ORDERED: METHADONE HCL 10 MG TABLET (FOR DETOX USE ONLY) PO ONE (10:00)
[2020-07-06] MEDS: PRENATAL VITAMINS W/ FOLIC ACID TABLET (FP) PO SCH (10:06)
[2020-07-06] MEDS: NICOTINE 7 MG/24 HOURS TOPICAL PATCH TD SCH (10:08)
[2020-07-06] MEDS: THIAMINE HCL 100 MG TABLET (FP) PO SCH (22:37)
[2020-07-06] MEDS: SUVOREXANT 10 MG TABLET PO PRN (22:37)
[2020-07-07] MEDS: busPIRone HCL 5 MG TABLET PO SCH ×3 (07:59→22:30)
[2020-07-07] MEDS ORDERED: METHADONE HCL 5 MG TABLET (FOR DETOX USE ONLY) ONE (09:56)
[2020-07-07] MEDS ORDERED: METHADONE HCL 10 MG TABLET (FOR DETOX USE ONLY) ONE (09:56)
[2020-07-07] MEDS ORDERED: METHADONE (DETOX) 10 MG, METHADONE (DETOX) 5 MG PO ONE (10:00)
[2020-07-07] MEDS: PRENATAL VITAMINS W/ FOLIC ACID TABLET (FP) PO SCH (10:18)
[2020-07-07] MEDS: NICOTINE 7 MG/24 HOURS TOPICAL PATCH TD SCH (10:18)
[2020-07-07] MEDS: THIAMINE HCL 100 MG TABLET (FP) PO SCH (22:30)
[2020-07-07] MEDS: SUVOREXANT 20 MG TABLET PO PRN (22:32)
[2020-07-08] MEDS: busPIRone HCL 5 MG TABLET PO SCH ×3 (07:08→22:40)
[2020-07-08] MEDS ORDERED: METHADONE HCL 10 MG TABLET (FOR DETOX USE ONLY) PO ONE (10:00)
[2020-07-08] MEDS: PRENATAL VITAMINS W/ FOLIC ACID TABLET (FP) PO SCH (10:09)
[2020-07-08] MEDS: NICOTINE 7 MG/24 HOURS TOPICAL PATCH TD SCH (10:10)
[2020-07-08] MEDS: SUVOREXANT 20 MG TABLET PO PRN (22:39)
[2020-07-08] MEDS: THIAMINE HCL 100 MG TABLET (FP) PO SCH (22:41)
[2020-07-09] MEDS ORDERED: METHADONE HCL 5 MG TABLET (FOR DETOX USE ONLY) PO ONE (06:00)
[2020-07-09] MEDS: busPIRone HCL 5 MG TABLET PO SCH (06:21)
[2020-07-09 09:42] VITALS: BP 138/76; PULSE 95; TEMP 97
[2020-07-09] MEDS: PRENATAL VITAMINS W/ FOLIC ACID TABLET (FP) PO SCH (09:56)
[2020-07-09] MEDS: NICOTINE 7 MG/24 HOURS TOPICAL PATCH TD SCH (09:57)
== END 2020-07-09 14:15 | disposition other institution (70) | DRG 773 ==
LOC: YASAS 16:42 → Y6N 20:16
PROVIDERS: ADMIT Allergy & Immunology; ATTEND Allergy & Immunology
PROC: HZ2ZZZZ Detoxification Services for Substance Abuse Treatment (ICD-10-PCS; principal; 2020-07-04)
DX: F11.23 Opioid dependence with withdrawal (principal); F12.20 Cannabis dependence, uncomplicated; F17.210 Nicotine dependence, cigarettes, uncomplicated; F19.282 Other psychoactive substance dependence with psychoactive substance-induced sleep disorder; F19.280 Other psychoactive substance dependence with psychoactive substance-induced anxiety disorder; F19.24 Other psychoactive substance dependence with psychoactive substance-induced mood disorder; G47.00 Insomnia, unspecified; I83.93 Asymptomatic varicose veins of bilateral lower extremities
CPT/HCPCS: 36415; 80053; 85027; 86780; 93005; 93010; C9803; J0735; U0003; U0005

== ENCOUNTER 2020-07-09 14:24 | Inpatient (IN) | payer OTHER ==
[2020-07-09] MEDS ORDERED: ACETAMINOPHEN 325 MG TABLET (FP) PO PRN (15:16)
[2020-07-09] MEDS ORDERED: MENTHOL/PHENOL 1 EACH UD MM PRN (15:16)
[2020-07-09] MEDS ORDERED: hydrOXYzine PAMOATE 25 MG CAPSULE (FP) PO PRN (15:16)
[2020-07-09] MEDS ORDERED: guaiFENesin 200 MG/10 ML 10 ML UNIT-DOSE CUPS PO PRN (15:16)
[2020-07-09] MEDS ORDERED: LOPERAMIDE HCL 2 MG CAPSULE PO PRN (15:16)
[2020-07-09] MEDS ORDERED: MAGNESIUM HYDROX 2400MG/30ML ORAL SUSPENSION 30 ML CUP PO PRN (15:16)
[2020-07-09] MEDS ORDERED: MAG HYDROX/AL HYDROX/SIMETH 30 ML UNIT-DOSE CUP PO PRN (15:16)
[2020-07-09] MEDS ORDERED: NICOTINE POLACRILEX 2 MG GUM BUC PRN (15:16)
[2020-07-09] MEDS ORDERED: MAGNESIUM CITRATE 300 ML BOTTLE PO PRN (15:16)
[2020-07-09] MEDS ORDERED: P-EPHED 60MG/TRIPROLIDI 2.5MG TABLET PO PRN (15:16)
[2020-07-09] MEDS ORDERED: IBUPROFEN 400 MG TABLET (FP) PO PRN (15:16)
[2020-07-09] MEDS ORDERED: METHOCARBAMOL 500 MG TABLET PO PRN (15:18)
[2020-07-09] MEDS ORDERED: cloNIDine HCL 0.1 MG TABLET PO PRN (15:19)
[2020-07-09] MEDS ORDERED: MELATONIN 5 MG TABLETS PO PRN (15:27)
[2020-07-09] MEDS ORDERED: MELATONIN 5 MG TABLETS PO SCH (22:00)
[2020-07-09] MEDS ORDERED: THIAMINE HCL 100 MG TABLET (FP) PO SCH (22:00)
[2020-07-09] MEDS ORDERED: busPIRone HCL 5 MG TABLET PO SCH (22:00)
[2020-07-10] MEDS ORDERED: NICOTINE 7 MG/24 HOURS TOPICAL PATCH TD SCH (10:00)
[2020-07-10] MEDS ORDERED: PRENATAL VITAMINS W/ FOLIC ACID TABLET (FP) PO SCH (10:00)
== END 2020-07-09 15:56 | disposition left against medical advice (07) | DRG 770 ==
LOC: YASAS 14:24 → Y3E 14:28
PROVIDERS: ADMIT Allergy & Immunology; ATTEND Allergy & Immunology
PROC: HZ42ZZZ Group Counseling for Substance Abuse Treatment, Cognitive-Behavioral (ICD-10-PCS; principal; 2020-07-09)
DX: F11.20 Opioid dependence, uncomplicated (principal); F12.20 Cannabis dependence, uncomplicated; F34.1 Dysthymic disorder; G47.00 Insomnia, unspecified; I83.93 Asymptomatic varicose veins of bilateral lower extremities; R63.4 Abnormal weight loss; Z68.25 Body mass index [BMI] 25.0-25.9, adult